=== PATIENT | male | born 1965 | race Caucasian/White ===

== ENCOUNTER 2019-07-13 17:04 | Inpatient (IN) ==
[2019-07-13] MEDS ORDERED: SODIUM CHLORIDE 0.9% 1000ML 500 ML IV ONE (17:30)
--- NOTE | 2019-07-13 17:37 | Emergency Department Note ---
History of Present Illness General Chief complaint: Back Injury/Pain Stated complaint: back pain Time Seen by Provider: 07/13/19 17:20 Source: family, RN notes reviewed and old records reviewed History of Present Illness Provider complaint: confused Maximum Pain Intensity: 5 Primary historian: Daughter: Cade. [phone] Pt has been confused since 1400 yesterday. Has been dropping drinks. Takes Hydrocone and Flexeril (06/25/2019). Thought he was at old job and thought was at house. Was supposed to go for Xrays for back a week ago. Normally drinks at least a couple glass of wine a day. Since last 24 hours a day no alcohol and no smoking. No complaints of chest pain but has been complaining of back pain. He was found Home Medications Home Medications Medication Instructions Recorded Confirmed Type albuterol sulfate 2 puff INHALATION Q4 PRN 07/13/19 07/13/19 History cyclobenzaprine 10 mg PO BID PRN 07/13/19 07/13/19 History folic acid 1 mg PO DAILY 07/13/19 07/13/19 History hydrocodone-acetaminophen 1 tab PO Q6H PRN 07/13/19 07/13/19 History hydroxyzine pamoate 25 mg PO TID PRN 07/13/19 07/13/19 History umeclidinium-vilanterol [Anoro 1 inh INHALATION DAILY 07/13/19 07/13/19 History Ellipta] Allergies Allergy/AdvReac Type Severity Reaction Status Date / Time No Known Allergies Allergy Unverified 07/13/19 18:51 Past Med/Surg History Social History Preferred Language: Romansh Communication Ability: Impaired Communication Ability Comment: patient angry, unable to answer most questions 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 Current Living Situation Comment: patient angry, unable to answer most questions Feels Safe at Home: Yes Smoking Status: Unknown if ever smoked Review of Systems A total of 10 systems reviewed and were otherwise negative Physical Exam Vital Signs Vital Signs - 24 hr 07/13/19 16:36 07/13/19 17:05 07/13/19 17:30 Temperature Temperature Source Pulse Rate 132 H 138 H 132 H Pulse Rate from SpO2 Sensor Pulse Rhythm Regular Pulse Strength Normal Respiratory Rate 22 20 19 Respiratory Effort / Characteristics Non-Labored Spontaneous Respiratory Depth Normal Respiratory Pattern Regular Blood Pressure 141/88 H 97/72 L 135/124 H Blood Pressure Mean 104 80 131 Blood Pressure Position Sitting Pulse Oximetry 98 Oxygen Delivery Method Room Air Sepsis Recent Fever Within 48 Hours No Sepsis New/Unexplained Change in Mental Status No Sepsis Action Taken by Nursing No Action Required 07/13/19 18:07 07/13/19 18:09 07/13/19 18:11 Temperature Temperature Source Pulse Rate 133 H 134 H Pulse Rate from SpO2 Sensor 133 H Pulse Rhythm Pulse Strength Respiratory Rate 23 23 Respiratory Effort / Characteristics Respiratory Depth Respiratory Pattern Blood Pressure 135/118 H 97/72 L Blood Pressure Mean 126 79 Blood Pressure Position Pulse Oximetry 94 94 Oxygen Delivery Method Room Air Sepsis Recent Fever Within 48 Hours Sepsis New/Unexplained Change in Mental Status Sepsis Action Taken by Nursing 07/13/19 18:18 07/13/19 18:46 07/13/19 19:00 Temperature 37.1 C Temperature Source Oral Pulse Rate 125 H 122 H Pulse Rate from SpO2 Sensor 125 H 125 H Pulse Rhythm Pulse Strength Respiratory Rate 30 H 25 H Respiratory Effort / Characteristics Respiratory Depth Respiratory Pattern Blood Pressure 110/67 103/81 Blood Pressure Mean 79 87 Blood Pressure Position Pulse Oximetry 93 92 Oxygen Delivery Method Sepsis Recent Fever Within 48 Hours Sepsis New/Unexplained Change in Mental Status Sepsis Action Taken by Nursing 07/13/19 19:15 07/13/19 20:15 Temperature Temperature Source Pulse Rate 114 H 119 H Pulse Rate from SpO2 Sensor 114 H 122 H Pulse Rhythm Pulse Strength Respiratory Rate 26 H 20 Respiratory Effort / Characteristics Respiratory Depth Respiratory Pattern Blood Pressure 114/73 115/79 Blood Pressure Mean 90 95 Blood Pressure Position Pulse Oximetry 93 91 Oxygen Delivery Method Sepsis Recent Fever Within 48 Hours Sepsis New/Unexplained Change in Mental Status Sepsis Action Taken by Nursing GENERAL: Patient is a cachectic-appearing male HEAD: Normocephalic atraumatic EYES: Ocular movements intact pupils equal and react to light OROPHARYNX mucous membranes are moist no exudates present no erythema or edema present NECK: Supple no nuchal rigidity CHEST: Good equal expansion LUNGS: Clear and equal to auscultation CARDIAC: Normal S1 and S2 ABDOMEN: Soft nontender no guarding BACK: No CVA tenderness EXTREMITIES: No pain upon palpation normal muscle strength in all groups no clubbing cyanosis or edema NEURO: Patient is following commands is answering questions appropriately. Alert and oriented x3 Cranial Nerves 2-12 grossly intact Course Administered Medications Magnesium Sulfate/Dextrose (Magnesium Sulfate / D5w) 1 gm in 100 mls @ 100 mls/hr IV ONE ONE Stop: 07/13/19 22:59 Last Admin: 07/13/19 22:23 Dose: 100 mls/hr Documented by: [id number] Lorazepam (Ativan) 1 mg in 2 mls @ 2 mls/min IV UD PRN; Protocol PRN Reason: EtOH Withdrawl AWSS Score 6,7 Stop: 08/12/19 21:35 Last Admin: 07/13/19 22:23 Dose: 2 mls/min Documented by: [id number] Discontinued Medications Gabapentin (Neurontin) 1,200 mg PO NOW STA Stop: 07/13/19 20:08 Last Admin: 07/13/19 20:19 Dose: 1,200 mg Documented by: [id number] Sodium Chloride (Nss 1000ml) 500 mls @ 999 mls/hr IV .Q31M ONE Stop: 07/13/19 18:00 Last Infusion: 07/13/19 19:41 Dose: 0 mls/hr Documented by: [id number] Admin: 07/13/19 18:43 Dose: 999 mls/hr Documented by: [id number] Multivitamins 10 ml/ Thiamine HCl 100 mg/ Folic Acid 1 mg/Sodium Chloride 1,011.2 mls @ 1,011.2 mls/hr IV .Q1H ONE Stop: 07/13/19 18:37 Last Infusion: 07/13/19 20:15 Dose: 0 mls/hr Documented by: [id number] Admin: 07/13/19 18:43 Dose: 1,011.2 mls/hr Documented by: [id number] Sodium Chloride (Nss 1000ml) 1,000 mls @ 999 mls/hr IV .Q1H1M ONE Stop: 07/13/19 20:01 Last Infusion: 07/13/19 20:25 Dose: 0 mls/hr Documented by: [id number] Admin: 07/13/19 19:12 Dose: 999 mls/hr Documented by: [id number] Ampicillin Sodium/Sulbactam Sodium 3,000 mg/ Sodium Chloride 108 mls @ 200 mls/hr IV NOW STA Stop: 07/13/19 20:03 Last Infusion: 07/13/19 20:46 Dose: 0 mls/hr Documented by: [id number] Admin: 07/13/19 20:15 Dose: 200 mls/hr Documented by: [id number] Parenteral Electrolytes (Normosol-R) 500 mls @ 500 mls/hr IV .Q1H ONE Stop: 07/13/19 21:09 Last Infusion: 07/13/19 21:15 Dose: 0 mls/hr Documented by: [id number] Admin: 07/13/19 20:15 Dose: 500 mls/hr Documented by: [id number] Ioversol (Optiray 320 100ml) 55 ml IV ONCE PRN PRN Reason: Interaction Checking Stop: 07/17/19 18:42 Last Admin: 07/13/19 18:43 Dose: 55 ml Documented by: [id number] Ioversol (Optiray 320 100ml) 94 ml IV ONCE PRN PRN Reason: Interaction Checking Stop: 07/17/19 18:44 Last Admin: 07/13/19 18:45 Dose: 94 ml Documented by: [id number] Potassium Chloride (Klor-Con M20) 40 meq PO NOW STA Stop: 07/13/19 19:44 Last Admin: 07/13/19 20:20 Dose: 40 meq Documented by: [id number] Medical Decision Making Differential Diagnosis Infection, dehydration, metabolic abnormality, hypo/hyperglycemia, electrolyte disturbance, anemia, hypoxia, cardiac sources, intracerebral event, toxicologic, neurologic, as well as other pathologies. Medical Records Attestation: I reviewed the patient's medical records. Home Medications Current Medication List: was personally reviewed by me Laboratory Data Attestation: I reviewed the patient's lab results. Result diagrams: 07/13/19 17:35 07/13/19 20:45 Lab Results 07/13/19 07/13/19 07/13/19 Range/Units 17:35 17:35 17:35 WBC 10.05 (4.8-10.8) K/uL RBC 4.47 L (4.7-6.1) M/uL Hgb 15.9 (14.0-18.0) g/dL POC Hgb (14.0-18.0) g/dl Hct 45.5 (42-52) % POC Hct (42-52) % MCV 101.8 H (80-100) fL MCH 35.6 H (25-34) pg MCHC 34.9 (32-36) g/dL RDW Std Deviation 55.7 H (36.4-46.3) fL RDW Coeff of Trista 15.2 H (11.5-14.5) % Plt Count 119 L (130-400) K/uL MPV 12.0 H (7.4-10.4) fL Immature Gran % (Auto) 0.4 % Neut % (Auto) 67.5 % Lymph % (Auto) 22.0 % [place] % (Auto) 8.6 % Eos % (Auto) 0.9 % Baso % (Auto) 0.6 % Immature Gran # (Auto) 0.04 H (0.00-0.02) K/uL Neut # (Auto) 6.79 H (1.4-6.5) K/uL Lymph # (Auto) 2.21 (1.2-3.4) K/uL [place] # (Auto) 0.86 H (0.11-0.59) K/uL Eos # (Auto) 0.09 (0-0.5) K/uL Baso # (Auto) 0.06 (0-0.2) K/uL Macrocytosis Present PT 15.4 H (9.0-12.0) Seconds INR 1.5 H (0.9-1.1) APTT 28.2 (21.0-31.0) Seconds PTT Ratio 1.0 POC Sodium (135-144) mmol/L Sodium 131 L (136-145) mmol/L POC Potassium (3.3-5.0) mmol/L Potassium 3.6 (3.5-5.1) mmol/L POC Chloride (101-112) mmol/L Chloride 93 L (98-107) mmol/L Carbon Dioxide 26 (21-32) mmol/L POC Total CO2 (24-31) mEq/l Anion Gap 12.0 H (3-11) POC Anion Gap (16-25) mmol/L POC BUN (7-18) mg/dl BUN 27 H (7-18) mg/dl Creatinine 1.38 (0.6-1.4) mg/dl POC Creatinine (0.6-1.3) mg/dl Est Cr Clr Drug Dosing 42.7 ml/min Est GFR ( Amer) 66.2 Est GFR (Non-Af Amer) 57.1 BUN/Creatinine Ratio 19.7 (10-20) Glucose 98 (70-99) mg/dl POC Glucose (other) (70-99) mg/dl Osmolality (280-300) mOsm/kg Lactate (0.4-2.0) mmol/L Calcium 13.0 H* (8.5-10.1) mg/dl POC Ioniz Calcium Carleen (1.12-1.32) mmol/l Phosphorus (2.5-4.9) mg/dl Magnesium (1.8-2.4) mg/dl Total Bilirubin 2.5 H (0.2-1) mg/dl AST 216 H (15-37) U/L ALT 63 (12-78) U/L Alkaline Phosphatase 659 H (45-117) U/L Total Creatine Kinase 169 (39-308) U/L CK-MB (CK-2) 1.5 (0.5-3.6) ng/ml CK/CKMB % Calc 0.9 (0-3.0) Troponin I < 0.015 (0-0.045) ng/ml Total Protein 8.1 (6.4-8.2) gm/dl Albumin 2.4 L (3.4-5.0) gm/dl Globulin 5.7 H (2.5-4.0) gm/dl Albumin/Globulin Ratio 0.4 L (0.9-2) Lipase 49 L (73-393) U/L Procalcitonin (0-0.5) ng/ml TSH (0.300-4.500) uIu/ml Ethyl Alcohol mg/dL (0-3) mg/dl 07/13/19 07/13/19 07/13/19 Range/Units 17:35 17:35 17:54 WBC (4.8-10.8) K/uL RBC (4.7-6.1) M/uL Hgb (14.0-18.0) g/dL POC Hgb 17.0 (14.0-18.0) g/dl Hct (42-52) % POC Hct 50 (42-52) % MCV (80-100) fL MCH (25-34) pg MCHC (32-36) g/dL RDW Std Deviation (36.4-46.3) fL RDW Coeff of Trista (11.5-14.5) % Plt Count (130-400) K/uL MPV (7.4-10.4) fL Immature Gran % (Auto) % Neut % (Auto) % Lymph % (Auto) % [place] % (Auto) % Eos % (Auto) % Baso % (Auto) % Immature Gran # (Auto) (0.00-0.02) K/uL Neut # (Auto) (1.4-6.5) K/uL Lymph # (Auto) (1.2-3.4) K/uL [place] # (Auto) (0.11-0.59) K/uL Eos # (Auto) (0-0.5) K/uL Baso # (Auto) (0-0.2) K/uL Macrocytosis PT (9.0-12.0) Seconds INR (0.9-1.1) APTT (21.0-31.0) Seconds PTT Ratio POC Sodium 132 L (135-144) mmol/L Sodium (136-145) mmol/L POC Potassium 3.8 (3.3-5.0) mmol/L Potassium (3.5-5.1) mmol/L POC Chloride 93 L (101-112) mmol/L Chloride (98-107) mmol/L Carbon Dioxide (21-32) mmol/L POC Total CO2 24 (24-31) mEq/l Anion Gap (3-11) POC Anion Gap 19.0 (16-25) mmol/L POC BUN 27 H (7-18) mg/dl BUN (7-18) mg/dl Creatinine (0.6-1.4) mg/dl POC Creatinine 1.3 (0.6-1.3) mg/dl Est Cr Clr Drug Dosing ml/min Est GFR ( Amer) Est GFR (Non-Af Amer) BUN/Creatinine Ratio (10-20) Glucose (70-99) mg/dl POC Glucose (other) 104 H (70-99) mg/dl Osmolality (280-300) mOsm/kg Lactate (0.4-2.0) mmol/L Calcium (8.5-10.1) mg/dl POC Ioniz Calcium Carleen 1.53 H (1.12-1.32) mmol/l Phosphorus 3.7 (2.5-4.9) mg/dl Magnesium 1.8 (1.8-2.4) mg/dl Total Bilirubin (0.2-1) mg/dl AST (15-37) U/L ALT (12-78) U/L Alkaline Phosphatase (45-117) U/L Total Creatine Kinase (39-308) U/L CK-MB (CK-2) (0.5-3.6) ng/ml CK/CKMB % Calc (0-3.0) Troponin I (0-0.045) ng/ml Total Protein (6.4-8.2) gm/dl Albumin (3.4-5.0) gm/dl Globulin (2.5-4.0) gm/dl Albumin/Globulin Ratio (0.9-2) Lipase (73-393) U/L Procalcitonin (0-0.5) ng/ml TSH 9.580 H (0.300-4.500) uIu/ml Ethyl Alcohol mg/dL (0-3) mg/dl 07/13/19 07/13/19 07/13/19 Range/Units 18:08 18:08 18:08 WBC (4.8-10.8) K/uL RBC (4.7-6.1) M/uL Hgb (14.0-18.0) g/dL POC Hgb (14.0-18.0) g/dl Hct (42-52) % POC Hct (42-52) % MCV (80-100) fL MCH (25-34) pg MCHC (32-36) g/dL RDW Std Deviation (36.4-46.3) fL RDW Coeff of Trista (11.5-14.5) % Plt Count (130-400) K/uL MPV (7.4-10.4) fL Immature Gran % (Auto) % Neut % (Auto) % Lymph % (Auto) % [place] % (Auto) % Eos % (Auto) % Baso % (Auto) % Immature Gran # (Auto) (0.00-0.02) K/uL Neut # (Auto) (1.4-6.5) K/uL Lymph # (Auto) (1.2-3.4) K/uL [place] # (Auto) (0.11-0.59) K/uL Eos # (Auto) (0-0.5) K/uL Baso # (Auto) (0-0.2) K/uL Macrocytosis PT (9.0-12.0) Seconds INR (0.9-1.1) APTT (21.0-31.0) Seconds PTT Ratio POC Sodium (135-144) mmol/L Sodium (136-145) mmol/L POC Potassium (3.3-5.0) mmol/L Potassium (3.5-5.1) mmol/L POC Chloride (101-112) mmol/L Chloride (98-107) mmol/L Carbon Dioxide (21-32) mmol/L POC Total CO2 (24-31) mEq/l Anion Gap (3-11) POC Anion Gap (16-25) mmol/L POC BUN (7-18) mg/dl BUN (7-18) mg/dl Creatinine (0.6-1.4) mg/dl POC Creatinine (0.6-1.3) mg/dl Est Cr Clr Drug Dosing ml/min Est GFR ( Amer) Est GFR (Non-Af Amer) BUN/Creatinine Ratio (10-20) Glucose (70-99) mg/dl POC Glucose (other) (70-99) mg/dl Osmolality (280-300) mOsm/kg Lactate 5.1 H* (0.4-2.0) mmol/L Calcium (8.5-10.1) mg/dl POC Ioniz Calcium Carleen (1.12-1.32) mmol/l Phosphorus (2.5-4.9) mg/dl Magnesium (1.8-2.4) mg/dl Total Bilirubin (0.2-1) mg/dl AST (15-37) U/L ALT (12-78) U/L Alkaline Phosphatase (45-117) U/L Total Creatine Kinase (39-308) U/L CK-MB (CK-2) (0.5-3.6) ng/ml CK/CKMB % Calc (0-3.0) Troponin I (0-0.045) ng/ml Total Protein (6.4-8.2) gm/dl Albumin (3.4-5.0) gm/dl Globulin (2.5-4.0) gm/dl Albumin/Globulin Ratio (0.9-2) Lipase (73-393) U/L Procalcitonin 1.23 H (0-0.5) ng/ml TSH (0.300-4.500) uIu/ml Ethyl Alcohol mg/dL < 3.0 (0-3) mg/dl 07/13/19 Range/Units 18:08 WBC (4.8-10.8) K/uL RBC (4.7-6.1) M/uL Hgb (14.0-18.0) g/dL POC Hgb (14.0-18.0) g/dl Hct (42-52) % POC Hct (42-52) % MCV (80-100) fL MCH (25-34) pg MCHC (32-36) g/dL RDW Std Deviation (36.4-46.3) fL RDW Coeff of Trista (11.5-14.5) % Plt Count (130-400) K/uL MPV (7.4-10.4) fL Immature Gran % (Auto) % Neut % (Auto) % Lymph % (Auto) % [place] % (Auto) % Eos % (Auto) % Baso % (Auto) % Immature Gran # (Auto) (0.00-0.02) K/uL Neut # (Auto) (1.4-6.5) K/uL Lymph # (Auto) (1.2-3.4) K/uL [place] # (Auto) (0.11-0.59) K/uL Eos # (Auto) (0-0.5) K/uL Baso # (Auto) (0-0.2) K/uL Macrocytosis PT (9.0-12.0) Seconds INR (0.9-1.1) APTT (21.0-31.0) Seconds PTT Ratio POC Sodium (135-144) mmol/L Sodium (136-145) mmol/L POC Potassium (3.3-5.0) mmol/L Potassium (3.5-5.1) mmol/L POC Chloride (101-112) mmol/L Chloride (98-107) mmol/L Carbon Dioxide (21-32) mmol/L POC Total CO2 (24-31) mEq/l Anion Gap (3-11) POC Anion Gap (16-25) mmol/L POC BUN (7-18) mg/dl BUN (7-18) mg/dl Creatinine (0.6-1.4) mg/dl POC Creatinine (0.6-1.3) mg/dl Est Cr Clr Drug Dosing ml/min Est GFR ( Amer) Est GFR (Non-Af Amer) BUN/Creatinine Ratio (10-20) Glucose (70-99) mg/dl POC Glucose (other) (70-99) mg/dl Osmolality 307 H (280-300) mOsm/kg Lactate (0.4-2.0) mmol/L Calcium (8.5-10.1) mg/dl POC Ioniz Calcium Carleen (1.12-1.32) mmol/l Phosphorus (2.5-4.9) mg/dl Magnesium (1.8-2.4) mg/dl Total Bilirubin (0.2-1) mg/dl AST (15-37) U/L ALT (12-78) U/L Alkaline Phosphatase (45-117) U/L Total Creatine Kinase (39-308) U/L CK-MB (CK-2) (0.5-3.6) ng/ml CK/CKMB % Calc (0-3.0) Troponin I (0-0.045) ng/ml Total Protein (6.4-8.2) gm/dl Albumin (3.4-5.0) gm/dl Globulin (2.5-4.0) gm/dl Albumin/Globulin Ratio (0.9-2) Lipase (73-393) U/L Procalcitonin (0-0.5) ng/ml TSH (0.300-4.500) uIu/ml Ethyl Alcohol mg/dL (0-3) mg/dl Imaging Data Radiologist's Impression: [facility], [place] [phone] CT Scan Report Patient: Susanne FRANK Date: 07/13/19 MR#: [id number] Acct ID:[id number]: [address] Date: 1965[facility] Zip: [place] [address] Age: 54Location: ED Sex: M Room/Bed: Att Phy:Diagnosis: back pain Edith Phy: Lakeisha Go, DOService Date: 07/13/19 Fam Phy: Lakeisha Go, DOInterpreting Phy: Adebayo Gaytan MD Admit Phy: Ordering Phy: Boris Johnson MD cc: ~ CT SCAN OF THE CHEST, ABDOMEN, AND PELVIS WITH IV CONTRAST; CT SCAN OF THE THORACIC SPINE WITHOUT IV CONTRAST CLINICAL HISTORY: Atypical chest pain. Thoracic back pain. Liver failure. COMPARISON STUDY: Lumbar spine radiographs dated 08/03/2014. TECHNIQUE: Following the IV administration of 94 of Optiray 320, CT scan of the chest was performed from the thoracic inlet to the upper abdomen. Subsequently, following a second injection of 55 cc of Optiray 320, CT scan of the abdomen and pelvis is performed from the lung bases to the proximal femora. Images are reviewed in the axial, sagittal, and coronal planes. IV contrast was administered without complication. Additionally, unenhanced CT scan of the thoracic spine is performed from the lower cervical spine to the upper lumbar spine. The thoracic spinal CT scan is also reviewed in the axial, sagittal, and coronal planes. IV contrast was not administered specifically for the thoracic spine CT. A dose lowering technique was utilized adhering to the principles of ALARA. CT DOSE: 392.15 mGy.cm FINDINGS: CHEST: Thyroid: Imaged portions of the thyroid gland are normal in size and attenuation. Low-attenuation thyroid nodules measure up to 10 mm. Thoracic aorta: There is mild atherosclerotic calcification of the thoracic aorta, which is normal in caliber and demonstrates 4-vessel variant arch anatomy. No dissection is seen. Pulmonary vasculature: The pulmonary trunk is normal in caliber. There are no filling defects identified in the central pulmonary vessels to indicate p ulmonary embolus. Note that this examination was not protocoled for evaluation of the pulmonary arteries and the pulmonary vessels are not well opacified. Heart: The heart is normal in size and without pericardial effusion. There are coronary artery calcifications. Lungs and pleural spaces: Moderate emphysematous change is identified. There is no airspace consolidation typical for pneumonia or pleural effusion. There is a 2.2 x 2.1 x 1.4 cm spiculated low-attenuation nodular density identified along the left major fissure seen on image #124. A 5 mm left lower lobe nodule seen image #245. A 9 mm nodular density at the medial right lung base seen on image #238. Additional foci of tree-in-bud nodularity are scattered throughout both lungs. The trachea and central airways are clear. Mediastinum: There are scattered subcentimeter mediastinal lymph nodes. These are not pathologically enlarged by size criteria. Demetra: Clear. Axillae: There is no axillary lymphadenopathy. Bony thorax: See below for dedicated assessment of the thoracic spine. The skeletal structures are heterogeneously osteopenic. There are permeative osteolytic metastatic lesions. There are numerous lesions identified throughout the thoracic spine. Lesions are also present within several ribs and the body of the sternum. A right scapular lesion is seen on image #53 involving the posterior glenoid. There are numerous right-sided rib fractures which are age indeterminant. THORACIC SPINE: Numerous subtle permeative osseous metastatic lesions are seen throughout the thoracic spine. There is a permeative lesion in the body of T11 with a mild to moderate compression deformity. There are also mild compression deformities of T7, T8, and T9 which are also likely pathologic. A permeative lesion is clearly seen in the body of T9. A soft tissue component from a lesion in the body of T9 minimally effaces the anterior epidural space. The transverse and spinous processes are intact. A permeative lesion is seen involving the left transverse process of T8. There is involvement of both transverse processes of T3. The disc spaces are preserved. There is no evidence of large disc herniation or high-grade central canal stenosis by CT. Soft tissues: The patient is cachectic. A 3.2 x 2.5 cm heterogeneous mass is present in the left paraspinous soft tissues posterior to the left transverse process of T2. This is best seen on axial image #[address] A 1.0 cm soft tissue nodule is present within the subcutaneous soft tissues of the left posterior shoulder as seen on image #72. ABDOMEN AND PELVIS: Liver: The contrast-enhanced liver is enlarged, measuring over 18 cm in length. The liver is heterogeneous in attenuation. There are numerous low-attenuation hepatic lesions which are highly concerning for metastatic disease. A large geographic region of diminished attenuation in the right lobe measures over 12 cm in length. A large lesion is also identified in the caudate lobe. There is no intrahepatic biliary ductal dilatation. The hepatic veins and portal veins are patent. The right portal vein appears attenuated. Gallbladder: The gallbladder is distended but otherwise normal in appearance. Spleen: Normal in size and attenuation. Pancreas: Moderately atrophic and grossly unremarkable. Adrenal glands: Unremarkable. Kidneys: The contrast enhanced kidneys are normal in size and without hyd ronephrosis. The kidneys enhance and excrete symmetrically. Excreted IV contrast fills the renal collecting systems and ureters. Abdominal vasculature: The abdominal aorta is normal in course and caliber noting moderate to advanced atherosclerotic calcification. Bowel: There is no bowel obstruction. There are scattered colonic diverticula without CT evidence of acute diverticulitis. Residual enteric contrast is noted in the right colon. The appendix is well-visualized and normal. Peritoneum: There is no intraperitoneal free air. Trace abdominopelvic ascites is noted. Lymphadenopathy: Enlarged kalyan hepatic lymph nodes measure up to 2.4 cm in length. An aortocaval node on image #147 measures 1.2 cm in short axis. Pelvic viscera: The prostate gland is mildly enlarged and heterogeneous. The bladder wall is thickened and trabeculated suggesting chronic outlet obstruction. A left-sided varicocele is noted. Skeletal structures: The skeletal structures are heterogeneously osteopenic. T here are numerous subtle permeative metastatic lesions identified in the lumbosacral spine and bony pelvis. A lesion the left iliac wing is seen on image #225. There is a lesion in the left transverse process of L3 seen on image #158. A large lesion is seen within the spinous process and laminae of L4. Soft tissues: A 9 mm subcutaneous soft tissue nodule is present in the left lower back on image #161. IMPRESSION: 1. Findings are consistent with widespread metastatic disease. 2. Emphysema. 3. There is a 2.2 cm spiculated pulmonary nodule along the left major fissure. 4. Findings are consistent with subtle multifocal osseous metastatic disease. 5. There are permeative destructive lesions in the thoracic spine with presumed pathologic compression deformities of T7, T8, T9, and T11. 6. Additional osseous metastatic deposits are detailed above. 7. There is a large heterogeneous soft tissue mass within the left posterior paraspinous soft tissues at the level of T2. 8. Additional subcutaneous nodules in the left posterior shoulder and the left lower back are concerning for metastatic deposits. 9. There is evidence of multifocal hepatic metastatic disease. 10. A 12 cm geographic low-attenuation lesion/region in the right hepatic lobe likely represents confluent metastatic disease. Geographic steatosis or infarct are considered much less likely. 11. There are pathologically enlarged upper abdominal and retroperitoneal lymph nodes. 12. There is trace abdominopelvic ascites. 13. There is mild posterior cortical breakthrough involving the T9 vertebral lesion. This minimally effaces the anterior epidural space. This does not cause significant spinal stenosis. 14. Additional subcentimeter pulmonary nodules are detailed above. 15. Scattered foci of tree-in-bud nodularity are scattered throughout both lungs and suggest a mild infectious/inflammatory pneumonitis. Clinical correlation will be required. 16. Additional findings as above. ACT 112: Negative or not required by law. Electronically signed by: Adebayo Gaytan M.D. 07/13/2019 7:18 PM Dictated: 07/13/19 [address] [place], [place] [phone] CT Scan Report Patient: Susanne FRANK Date: 07/13/19 MR#: [id number] [place] [address] ROAD Acct ID:[id number]: [address] Date: 1965[facility] Zip: [place] [address] Age: 54Location: ED Sex: M Room/Bed: Att Phy:Diagnosis: back pain Edith Phy: Lakeisha Go, DOService Date: 07/13/19 Fam Phy: Lakeisha Go, DOInterpreting Phy: Adebayo Gaytan MD Admit Phy: Ordering Phy: Boris Johnson MD cc: ~ CT SCAN OF THE BRAIN WITHOUT IV CONTRAST CLINICAL HISTORY: Change in mental status. COMPARISON STUDY: No priors. TECHNIQUE: Unenhanced axial CT scan of the brain is performed from the vertex to the skull base. A dose lowering technique was utilized adhering to the principl es of ELAINA. The examination is modestly degraded by motion artifact. CT DOSE: 1538.23 mGy.cm FINDINGS: Brain parenchyma: The brain parenchyma is normal in appearance. There is no hemorrhage, mass effect, or evidence of acute territorial ischemia by CT criteria. Watters-white matter differentiation is preserved. No extra-axial fluid collection is seen. Ventricles, sulci, cisterns: Normal in configuration. Intracranial vasculature: There is atherosclerotic calcification of the cavernous carotid arteries. Calvarium: Unremarkable. Sinuses and mastoids: The visualized paranasal sinuses are clear. The mastoid air cells are well pneumatized. Orbits: The bony orbits are grossly intact. IMPRESSION: No acute intracranial abnormality. ACT 112: Negative or not required by law. Electronically signed by: Adebayo Gaytan M.D. 07/13/2019 6:37 PM Dictated: 07/13/191834 Transcribed: 07/13/191834 14 Ready for Discharge: Author: Boris Johnson MD Last Saved at 07/13/19 19:24 undefined undefined Differential Diagnosis Infection,dehydration,metabolicabnormality,hypo/hyperglycemia,electr olytedisturbance,anemia,hypoxia,cardiacsources,intracerebralevent,toxicologic,ne urologic,aswellasotherpathologies. Attestation Additional Comments Click to Enter Additional Comments Current Medication List Additional Comments Click to Enter Additional Comments Attestation Lab results narrative Click to Enter Lab results narrative Result diagrams 07/13/19 17:35 07/13/19 20:45 Labs Lab Results 07/13/19 07/13/19 07/13/19 Range/Units 17:35 17:35 17:35 WBC 10.05 (4.8-10.8) K/uL RBC 4.47 L (4.7-6.1) M/uL Hgb 15.9 (14.0-18.0) g/dL POC Hgb (14.0-18.0) g/dl Hct 45.5 (42-52) % POC Hct (42-52) % MCV 101.8 H (80-100) fL MCH 35.6 H (25-34) pg MCHC 34.9 (32-36) g/dL RDW Std Deviation 55.7 H (36.4-46.3) fL RDW Coeff of Trista 15.2 H (11.5-14.5) % Plt Count 119 L (130-400) K/uL MPV 12.0 H (7.4-10.4) fL Immature Gran % (Auto) 0.4 % Neut % (Auto) 67.5 % Lymph % (Auto) 22.0 % [place] % (Auto) 8.6 % Eos % (Auto) 0.9 % Baso % (Auto) 0.6 % Immature Gran # (Auto) 0.04 H (0.00-0.02) K/uL Neut # (Auto) 6.79 H (1.4-6.5) K/uL Lymph # (Auto) 2.21 (1.2-3.4) K/uL [place] # (Auto) 0.86 H (0.11-0.59) K/uL Eos # (Auto) 0.09 (0-0.5) K/uL Baso # (Auto) 0.06 (0-0.2) K/uL Macrocytosis Present PT 15.4 H (9.0-12.0) Seconds INR 1.5 H (0.9-1.1) APTT 28.2 (21.0-31.0) Seconds PTT Ratio 1.0 POC Sodium (135-144) mmol/L Sodium 131 L (136-145) mmol/L POC Potassium (3.3-5.0) mmol/L Potassium 3.6 (3.5-5.1) mmol/L POC Chloride (101-112) mmol/L Chloride 93 L (98-107) mmol/L Carbon Dioxide 26 (21-32) mmol/L POC Total CO2 (24-31) mEq/l Anion Gap 12.0 H (3-11) POC Anion Gap (16-25) mmol/L POC BUN (7-18) mg/dl BUN 27 H (7-18) mg/dl Creatinine 1.38 (0.6-1.4) mg/dl POC Creatinine (0.6-1.3) mg/dl Est Cr Clr Drug Dosing 42.7 ml/min Est GFR ( Amer) 66.2 Est GFR (Non-Af Amer) 57.1 BUN/Creatinine Ratio 19.7 (10-20) Glucose 98 (70-99) mg/dl POC Glucose (other) (70-99) mg/dl Osmolality (280-300) mOsm/kg Lactate (0.4-2.0) mmol/L Calcium 13.0 H* (8.5-10.1) mg/dl POC Ioniz Calcium Carleen (1.12-1.32) mmol/l Phosphorus (2.5-4.9) mg/dl Magnesium (1.8-2.4) mg/dl Total Bilirubin 2.5 H (0.2-1) mg/dl AST 216 H (15-37) U/L ALT 63 (12-78) U/L Alkaline Phosphatase 659 H (45-117) U/L Total Creatine Kinase 169 (39-308) U/L CK-MB (CK-2) 1.5 (0.5-3.6) ng/ml CK/CKMB % Calc 0.9 (0-3.0) Troponin I < 0.015 (0-0.045) ng/ml Total Protein 8.1 (6.4-8.2) gm/dl Albumin 2.4 L (3.4-5.0) gm/dl Globulin 5.7 H (2.5-4.0) gm/dl Albumin/Globulin Ratio 0.4 L (0.9-2) Lipase 49 L (73-393) U/L Procalcitonin (0-0.5) ng/ml TSH (0.300-4.500) uIu/ml Ethyl Alcohol mg/dL (0-3) mg/dl 07/13/19 07/13/19 07/13/19 Range/Units 17:35 17:35 17:54 WBC (4.8-10.8) K/uL RBC (4.7-6.1) M/uL Hgb (14.0-18.0) g/dL POC Hgb 17.0 (14.0-18.0) g/dl Hct (42-52) % POC Hct 50 (42-52) % MCV (80-100) fL MCH (25-34) pg MCHC (32-36) g/dL RDW Std Deviation (36.4-46.3) fL RDW Coeff of Trista (11.5-14.5) % Plt Count (130-400) K/uL MPV (7.4-10.4) fL Immature Gran % (Auto) % Neut % (Auto) % Lymph % (Auto) % [place] % (Auto) % Eos % (Auto) % Baso % (Auto) % Immature Gran # (Auto) (0.00-0.02) K/uL Neut # (Auto) (1.4-6.5) K/uL Lymph # (Auto) (1.2-3.4) K/uL [place] # (Auto) (0.11-0.59) K/uL Eos # (Auto) (0-0.5) K/uL Baso # (Auto) (0-0.2) K/uL Macrocytosis PT (9.0-12.0) Seconds INR (0.9-1.1) APTT (21.0-31.0) Seconds PTT Ratio POC Sodium 132 L (135-144) mmol/L Sodium (136-145) mmol/L POC Potassium 3.8 (3.3-5.0) mmol/L Potassium (3.5-5.1) mmol/L POC Chloride 93 L (101-112) mmol/L Chloride (98-107) mmol/L Carbon Dioxide (21-32) mmol/L POC Total CO2 24 (24-31) mEq/l Anion Gap (3-11) POC Anion Gap 19.0 (16-25) mmol/L POC BUN 27 H (7-18) mg/dl BUN (7-18) mg/dl Creatinine (0.6-1.4) mg/dl POC Creatinine 1.3 (0.6-1.3) mg/dl Est Cr Clr Drug Dosing ml/min Est GFR ( Amer) Est GFR (Non-Af Amer) BUN/Creatinine Ratio (10-20) Glucose (70-99) mg/dl POC Glucose (other) 104 H (70-99) mg/dl Osmolality (280-300) mOsm/kg Lactate (0.4-2.0) mmol/L Calcium (8.5-10.1) mg/dl POC Ioniz Calcium Carleen 1.53 H (1.12-1.32) mmol/l Phosphorus 3.7 (2.5-4.9) mg/dl Magnesium 1.8 (1.8-2.4) mg/dl Total Bilirubin (0.2-1) mg/dl AST (15-37) U/L ALT (12-78) U/L Alkaline Phosphatase (45-117) U/L Total Creatine Kinase (39-308) U/L CK-MB (CK-2) (0.5-3.6) ng/ml CK/CKMB % Calc (0-3.0) Troponin I (0-0.045) ng/ml Total Protein (6.4-8.2) gm/dl Albumin (3.4-5.0) gm/dl Globulin (2.5-4.0) gm/dl Albumin/Globulin Ratio (0.9-2) Lipase (73-393) U/L Procalcitonin (0-0.5) ng/ml TSH 9.580 H (0.300-4.500) uIu/ml Ethyl Alcohol mg/dL (0-3) mg/dl 07/13/19 07/13/19 07/13/19 Range/Units 18:08 18:08 18:08 WBC (4.8-10.8) K/uL RBC (4.7-6.1) M/uL Hgb (14.0-18.0) g/dL POC Hgb (14.0-18.0) g/dl Hct (42-52) % POC Hct (42-52) % MCV (80-100) fL MCH (25-34) pg MCHC (32-36) g/dL RDW Std Deviation (36.4-46.3) fL RDW Coeff of Trista (11.5-14.5) % Plt Count (130-400) K/uL MPV (7.4-10.4) fL Immature Gran % (Auto) % Neut % (Auto) % Lymph % (Auto) % [place] % (Auto) % Eos % (Auto) % Baso % (Auto) % Immature Gran # (Auto) (0.00-0.02) K/uL Neut # (Auto) (1.4-6.5) K/uL Lymph # (Auto) (1.2-3.4) K/uL [place] # (Auto) (0.11-0.59) K/uL Eos # (Auto) (0-0.5) K/uL Baso # (Auto) (0-0.2) K/uL Macrocytosis PT (9.0-12.0) Seconds INR (0.9-1.1) APTT (21.0-31.0) Seconds PTT Ratio POC Sodium (135-144) mmol/L Sodium (136-145) mmol/L POC Potassium (3.3-5.0) mmol/L Potassium (3.5-5.1) mmol/L POC Chloride (101-112) mmol/L Chloride (98-107) mmol/L Carbon Dioxide (21-32) mmol/L POC Total CO2 (24-31) mEq/l Anion Gap (3-11) POC Anion Gap (16-25) mmol/L POC BUN (7-18) mg/dl BUN (7-18) mg/dl Creatinine (0.6-1.4) mg/dl POC Creatinine (0.6-1.3) mg/dl Est Cr Clr Drug Dosing ml/min Est GFR ( Amer) Est GFR (Non-Af Amer) BUN/Creatinine Ratio (10-20) Glucose (70-99) mg/dl POC Glucose (other) (70-99) mg/dl Osmolality (280-300) mOsm/kg Lactate 5.1 H* (0.4-2.0) mmol/L Calcium (8.5-10.1) mg/dl POC Ioniz Calcium Carleen (1.12-1.32) mmol/l Phosphorus (2.5-4.9) mg/dl Magnesium (1.8-2.4) mg/dl Total Bilirubin (0.2-1) mg/dl AST (15-37) U/L ALT (12-78) U/L Alkaline Phosphatase (45-117) U/L Total Creatine Kinase (39-308) U/L CK-MB (CK-2) (0.5-3.6) ng/ml CK/CKMB % Calc (0-3.0) Troponin I (0-0.045) ng/ml Total Protein (6.4-8.2) gm/dl Albumin (3.4-5.0) gm/dl Globulin (2.5-4.0) gm/dl Albumin/Globulin Ratio (0.9-2) Lipase (73-393) U/L Procalcitonin 1.23 H (0-0.5) ng/ml TSH (0.300-4.500) uIu/ml Ethyl Alcohol mg/dL < 3.0 (0-3) mg/dl 07/13/19 Range/Units 18:08 WBC (4.8-10.8) K/uL RBC (4.7-6.1) M/uL Hgb (14.0-18.0) g/dL POC Hgb (14.0-18.0) g/dl Hct (42-52) % POC Hct (42-52) % MCV (80-100) fL MCH (25-34) pg MCHC (32-36) g/dL RDW Std Deviation (36.4-46.3) fL RDW Coeff of Trista (11.5-14.5) % Plt Count (130-400) K/uL MPV (7.4-10.4) fL Immature Gran % (Auto) % Neut % (Auto) % Lymph % (Auto) % [place] % (Auto) % Eos % (Auto) % Baso % (Auto) % Immature Gran # (Auto) (0.00-0.02) K/uL Neut # (Auto) (1.4-6.5) K/uL Lymph # (Auto) (1.2-3.4) K/uL [place] # (Auto) (0.11-0.59) K/uL Eos # (Auto) (0-0.5) K/uL Baso # (Auto) (0-0.2) K/uL Macrocytosis PT (9.0-12.0) Seconds INR (0.9-1.1) APTT (21.0-31.0) Seconds PTT Ratio POC Sodium (135-144) mmol/L Sodium (136-145) mmol/L POC Potassium (3.3-5.0) mmol/L Potassium (3.5-5.1) mmol/L POC Chloride (101-112) mmol/L Chloride (98-107) mmol/L Carbon Dioxide (21-32) mmol/L POC Total CO2 (24-31) mEq/l Anion Gap (3-11) POC Anion Gap (16-25) mmol/L POC BUN (7-18) mg/dl BUN (7-18) mg/dl Creatinine (0.6-1.4) mg/dl POC Creatinine (0.6-1.3) mg/dl Est Cr Clr Drug Dosing ml/min Est GFR ( Amer) Est GFR (Non-Af Amer) BUN/Creatinine Ratio (10-20) Glucose (70-99) mg/dl POC Glucose (other) (70-99) mg/dl Osmolality 307 H (280-300) mOsm/kg Lactate (0.4-2.0) mmol/L Calcium (8.5-10.1) mg/dl POC Ioniz Calcium Carleen (1.12-1.32) mmol/l Phosphorus (2.5-4.9) mg/dl Magnesium (1.8-2.4) mg/dl Total Bilirubin (0.2-1) mg/dl AST (15-37) U/L ALT (12-78) U/L Alkaline Phosphatase (45-117) U/L Total Creatine Kinase (39-308) U/L CK-MB (CK-2) (0.5-3.6) ng/ml CK/CKMB % Calc (0-3.0) Troponin I (0-0.045) ng/ml Total Protein (6.4-8.2) gm/dl Albumin (3.4-5.0) gm/dl Globulin (2.5-4.0) gm/dl Albumin/Globulin Ratio (0.9-2) Lipase (73-393) U/L Procalcitonin (0-0.5) ng/ml TSH (0.300-4.500) uIu/ml Ethyl Alcohol mg/dL (0-3) mg/dl Click to Enter Labs Attestation My Impression Click to Enter My Impression Radiologist's Impression [facility]calCS[facility],[phone]:Napoleon FRANK dmitDate:07/13/19MR#:[id number]:428TUN[address]ELROADAcctID:[id number] :[id number]:CityStZip:[id number]:54Location:EDSex:MRoom/Bed:AttPhy:Diagnosis: backpainPriPhy:LauraM. Felix,DOServiceDate:07/13/19FamPhy:LauraM. Donavan,DOInterpretingPhy:Er icMVilbertMDAdmitPhy :OrderingPhy:KevinM. Elizabeth,[facility]:~CTSCANOFTHECHEST,ABDOMEN,ANDPELVISWITHIVCONT RAST;CTSCANOFTHETHOR ACICSPINEWITHOUTIVCONTRASTCLINICALHISTORY:Atypicalchestpain.Thoracicbackpain.Anais erfailure.COMPARISON STUDY:Lumbarspineradiographsdated08/03/2014.TECHNIQUE:FollowingtheIVadministration in66leHglfusr541,CTs canofthechestwasperformedfromthethoracicinlettotheupperabdomen.Subsequently,foll owingasecondinjectio xci93fcriOlmhuth285,CTscanoftheabdomenandpelvisisperformedfromthelungbasestothep roximalfemora.Images arereviewedintheaxial,sagittal,andcoronalplanes.IVcontrastwasadministeredwithout complication.Additio charles,unenhancedCTscanofthethoracicspineisperformedfromthelowercervicalspinetoth eupperlumbarspine.Th ethoracicspinalCTscanisalsoreviewedintheaxial,sagittal,andcoronalplanes.IVcontra stwasnotadministered specificallyforthethoracicspineCT.Adoseloweringtechniquewasutilizedadheringtothe principlesofALARA.CT DOSE:392.15mGy.cmFINDINGS:CHEST:Thyroid:Imagedportionsofthethyroidglandarenormal insizeandattenuation .Low-ljeqixtcxigoxlmtqprlivbabzabksvcgzap49fa.Thoracicaorta:Thereismildatheroscl eroticcalcificationo fthethoracicaorta,whichisnormalincaliberanddemonstrates4-vesselvariantarchanatom y.Nodissectionisseen .Pulmonaryvasculature:Thepulmonarytrunkisnormalincaliber.Therearenofillingdefect sidentifiedinthecent ralpulmonaryvesselstoindicatepulmonaryembolus.Notethatthisexaminationwasnotproto coledforevaluationof thepulmonaryarteriesandthepulmonaryvesselsarenotwellopacified.Heart:Theheartisno rmalinsizeandwithout pericardialeffusion.Therearecoronaryarterycalcifications.Lungsandpleuralspaces:M oderateemphysematous changeisidentified.Thereisnoairspaceconsolidationtypicalforpneumoniaorpleuraleff usion.Thereisa2.2x2. 1x1.4cmspiculatedlow-attenuationnodulardensityidentifiedalongtheleftmajorfissure seenonimage#124.A5mm leftlowerlobenoduleseenimage#245.R8obagvfuogjplevvcahxduavaqqtkkflrtgubidfmztois nimage#238.Additiona ewnwhnmdbhf-wv-wvzfdbrbeuhzcmuzubvfhjgyvslyjcpqzrtqcdfnnzhh.Thetracheaandcentral airwaysareclear.Medi astinum:Therearescatteredsubcentimetermediastinallymphnodes.Thesearenotpathologi callyenlargedbysizec riteria.Demetra:Clear.Axillae:Thereisnoaxillarylymphadenopathy.Bonythorax:Seebelowf ordedicatedassessmen tofthethoracicspine.Theskeletalstructuresareheterogeneouslyosteopenic.Therearepe rmeativeosteolyticme tastaticlesions.Therearenumerouslesionsidentifiedthroughoutthethoracicspine.Lesi onsarealsopresentwit hinseveralribsandthebodyofthesternum.Arightscapularlesionisseenonimage#53involvi ngtheposteriorglenoi d.Therearenumerousright-sidedribfractureswhichareageindeterminant.THORACICSPINE: Numeroussubtlepermea tiveosseousmetastaticlesionsareseenthroughoutthethoracicspine.Thereisapermeative nvtggyaypmtracttcE18 withamildtomoderatecompressiondeformity.Therearealsomildcompressiondeformitiesof T7,T8,jkpU7krwsvoejw lsolikelypathologic.ApermeativelesionisclearlyseeninthebodyofT9.Asofttissuecompo nentfromalesioninthe xpypofT3qinhjgnhjzpacmaebtieopiapxnatuecedmpirvl.Thetransverseandspinousprocesse sareintact.Apermeati velesionisseeninvolvingthelefttransverseprocessofT8.Thereisinvolvementofbothtran sverseprocessesofT3. Thediscspacesarepreserved.Thereisnoevidenceoflargedischerniationorhigh-gradecent ralcanalstenosisbyCT .Softtissues:Thepatientiscachectic.A3.2x2.5cmheterogeneousmassispresentintheleft paraspinoussofttissu esposteriortothelefttransverseprocessofT2.Thisisbestseenonaxialimage#27oftheches tCT.A1.0cmsofttissue noduleispresentwithinthesubcutaneoussofttissuesoftheleftposteriorshoulderasseeno nimage#72.ABDOMENAND PELVIS:Liver:Thecontrast-enhancedliverisenlarged,auvtbmtwfhnpt73styzfkrzns.Theli verisheterogeneousin attenuation.Therearenumerouslow-attenuationhepaticlesionswhicharehighlyconcernin gformetastaticdiseas e.Ozgnoekmobdhfpnfihhzbfunbkrhxlwxqszeiepsixeozzraptroonalnwoohncxlidnxim60jmcnt ength.Alargelesionis alsoidentifiedinthecaudatelobe.Thereisnointrahepaticbiliaryductaldilatation.Theh epaticveinsandportal veinsarepatent.Therightportalveinappearsattenuated.Gallbladder:Thegallbladderisd istendedbutotherwise normalinappearance.Spleen:Normalinsizeandattenuation.Pancreas:Moderatelyatrophic andgrosslyunremarkab le.Adrenalglands:Unremarkable.Kidneys:Thecontrastenhancedkidneysarenormalinsizea ndwithouthydronephro sis.Thekidneysenhanceandexcretesymmetrically.ExcretedIVcontrastfillstherenalcoll ectingsystemsanduret ers.Abdominalvasculature:Theabdominalaortaisnormalincourseandcalibernotingmodera tetoadvancedatherosc leroticcalcification.Bowel:Thereisnobowelobstruction.Therearescatteredcolonicdiv erticulawithoutCTevi denceofacutediverticulitis.Residualentericcontrastisnotedintherightcolon.Theappe ndixiswell-visualize dandnormal.Peritoneum:Thereisnointraperitonealfreeair.Traceabdominopelvicascites isnoted.Lymphadenopa thy:Enlargedportahepaticlymphnodesmeasureupto2.4cminlength.Anaortocavalnodeonima ge#950hialcglu5.2cmi nshortaxis.Pelvicviscera:Theprostateglandismildlyenlargedandheterogeneous.Thebla dderwallisthickeneda ndtrabeculatedsuggestingchronicoutletobstruction.Aleft-sidedvaricoceleisnoted.Sk eletalstructures:The skeletalstructuresareheterogeneouslyosteopenic.Therearenumeroussubtlepermeativem etastaticlesionsiden tifiedinthelumbosacralspineandbonypelvis.Alesiontheleftiliacwingisseenonimage#22 5.Thereisalesioninth cbngzuxhhnamwynkvxidwemvV0zagafwnzjrd#158.Alargelesionisseenwithinthespinousproc essandlaminaeofL4.So fttissues:U4jfyqrluchupvhgvwmjuavekwidnkvzkchqlgfmuzoheyrchlrlrcpxqsgpdtpmus#161 .IMPRESSION:1.Findin gsareconsistentwithwidespreadmetastaticdisease.2.Emphysema.3.Thereisa2.2cmspicul atedpulmonarynodulea longtheleftmajorfissure.4.Findingsareconsistentwithsubtlemultifocalosseousmetast aticdisease.5.Therea repermeativedestructivelesionsinthethoracicspinewithpresumedpathologiccompressio ndeformitiesofT7,T8, T9,andT11.6.Additionalosseousmetastaticdepositsaredetailedabove.7.Thereisalargeh eterogeneoussofttiss uemasswithintheleftposteriorparaspinoussofttissuesatthelevelofT2.8.Additionalsub cutaneousnodulesinth eleftposteriorshoulderandtheleftlowerbackareconcerningformetastaticdeposits.9.Th ereisevidenceofmulti focalhepaticmetastaticdisease.10.R52xepqhoonoqflbxq-qwceignniiyaaqdrc/regioninth erighthepaticlobelik elyrepresentsconfluentmetastaticdisease.Geographicsteatosisorinfarctareconsidere dmuchlesslikely.11.T herearepathologicallyenlargedupperabdominalandretroperitoneallymphnodes.12.There istraceabdominopelvi cascites.13.YvlirltcpqvpoeymxapqbieyutpidfppyfdpdvyygqzhhumbztzbI3ucwotyqgrunplw n.Thisminimallyeffac estheanteriorepiduralspace.Thisdoesnotcausesignificantspinalstenosis.14.Addition alsubcentimeterpulmo narynodulesaredetailedabove.15.Lovcgduqcwgxannfhpv-br-lcjefdwzgdomeibqjwbksrmszg hroughoutbothlungsan dsuggestamildinfectious/inflammatorypneumonitis.Clinicalcorrelationwillberequire d.16.Additionalfindi ngsasabove.[id number]:Negativeornotrequiredbylaw.Electronicallysignedby:Tony Nicole:18PMD ictated:07/12/[id number]mYrowgCqvoewl,[id number] portPatient:Napoleon FRANK ENNETHAdmitDate:07/13/19MR#:[id number]:428TUNNELROADAcctID:[id number] ddress2:[id number] Date:1965CityStZip:[id number]:54Location:EDSex:MRoom/Bed:AttPhy:Keysha gnosis:backpainPriPh y:LauraM. Donavan,DOServiceDate:07/13/19FamPhy:LauraM. Donavan,DOInterpretin gPhy:EricMVilbertMDA dmitPhy:OrderingPhy:KevinM. Elizabeth,MDcc:~CTSCANOFTHEBRAINWITHOUTIVCONTRASTCLIN ICALHISTORY:Changein mentalstatus.COMPARISONSTUDY:Nopriors.TECHNIQUE:UnenhancedaxialCTscanofthebraini sperformedfromthever textotheskullbase.AdoseloweringtechniquewasutilizedadheringtotheprinciplesofALAR A.Theexaminationismo destlydegradedbymotionartifact.CTDOSE:1538.23mGy.cmFINDINGS:Brainparenchyma:Theb rainparenchymaisnorm alinappearance.Thereisnohemorrhage,masseffect,orevidenceofacuteterritorialischem iabyCTcriteria.Watters- whitematterdifferentiationispreserved.Noextra-axialfluidcollectionisseen.Ventric les,sulci,cisterns:N ormalinconfiguration.Intracranialvasculature:Thereisatheroscleroticcalcification ofthecavernouscaroti darteries.Calvarium:Unremarkable.Sinusesandmastoids:Thevisualizedparanasalsinuse sareclear.Themastoid aircellsarewellpneumatized.Orbits:Thebonyorbitsaregrosslyintact.IMPRESSION:Noacu teintracranialabnorm ality.[id number]:Negativeornotrequiredbylaw.Electronicallysignedby:Tony Nicole6:37PMDictated:07/12/[id number]: Prescription Drug Monitoring Prescription Drug Findings Post eriorEKGshowsasinustachycardiawithleftaxisdeviationanterolateralinfarctoldinferi auqwxdbosyjpxivRDrwdszknregqsmpes410 Blood Pressure Findings Blood Pressure Disposition Additional Comments Click to Enter Additional Comments * MDM Narrative Click to Enter MDM Narrative Brian Frank 54, M1965 ADM IN, 2N N283 -2 6ft 55kg BMI: 16.4kg/m Search Chart No Data to Display ONSET Today 21:43 *from earlier documentation Signed 07/13/19 Signed 07/13/19 Signed 07/13/19 Signed 07/13/19 Signed 07/13/19 Trop I WBC Hb Hct Plt PT INR PTT BUN Cr Na K BSG Glu Mg Total Bili Lipase BRIAN FRANK 54 M 1965 SIGN [facility], [place] [phone] CT Scan Report Patient: Susanne FRANK Date: 07/13/19 MR#: [id number]: [address] Acct ID:[id number]: [address] Date: 1965City Zip: [place] [address] Age: 54Location: ED Sex: M Room/Bed: Att Phy:Diagnosis: back pain Edith Phy: Lakeisha Go, DOService Date: 07/13/19 Fam Phy: Lakeisha Go, DOInterpreting Phy: Adebayo Gaytan MD Admit Phy: Ordering Phy: Boris Johnson MD cc: ~ CT SCAN OF THE CHEST, ABDOMEN, AND PELVIS WITH IV CONTRAST; CT SCAN OF THE THORACIC SPINE WITHOUT IV CONTRAST CLINICAL HISTORY: Atypical chest pain. Thoracic back pain. Liver failure. COMPARISON STUDY: Lumbar spine radiographs dated 08/03/2014. TECHNIQUE: Following the IV administration of 94 of Optiray 320, CT scan of the chest was performed from the thoracic inlet to the upper abdomen. Subsequently, following a second injection of 55 cc of Optiray 320, CT scan of the abdomen and pelvis is performed from the lung bases to the proximal femora. Images are reviewed in the axial, sagittal, and coronal planes. IV contrast was administered without complication. Additionally, unenhanced CT scan of the thoracic spine is performed from the lower cervical spine to the upper lumbar spine. The thoracic spinal CT scan is also reviewed in the axial, sagittal, and coronal planes. IV contrast was not administered specifically for the thoracic spine CT. A dose lowering technique was utilized adhering to the principles of ALARA. CT DOSE: 392.15 mGy.cm FINDINGS: CHEST: Thyroid: Imaged portions of the thyroid gland are normal in size and atte nuation. Low-attenuation thyroid nodules measure up to 10 mm. Thoracic aorta: There is mild atherosclerotic calcification of the thoracic aorta, which is normal in caliber and demonstrates 4-vessel variant arch anatomy. No dissection is seen. Pulmonary vasculature: The pulmonary trunk is normal in caliber. There are no filling defects identified in the central pulmonary vessels to indicate pulmo nary embolus. Note that this examination was not protocoled for evaluation of the pulmonary arteries and the pulmonary vessels are not well opacified. Heart: The heart is normal in size and without pericardial effusion. There are coronary artery calcifications. Lungs and pleural spaces: Moderate emphysematous change is identified. There is no airspace consolidation typical for pneumonia or pleural effusion. There is a 2.2 x 2.1 x 1.4 cm spiculated low-attenuation nodular density identified along the left major fissure seen on image #124. A 5 mm left lower lobe nodule seen image #245. A 9 mm nodular density at the medial right lung base seen on image #238. Additional foci of tree-in-bud nodularity are scattered throughout both lungs. The trachea and central airways are clear. Mediastinum: There are scattered subcentimeter mediastinal lymph nodes. These are not pathologically enlarged by size criteria. Demetra: Clear. Axillae: There is no axillary lymphadenopathy. Bony thorax: See below for dedicated assessment of the thoracic spine. The skeletal structures are heterogeneously osteopenic. There are permeative osteolytic metastatic lesions. There are numerous lesions identified throughout the thoracic spine. Lesions are also present within several ribs and the body of the sternum. A right scapular lesion is seen on image #53 involving the posterior glenoid. There are numerous right-sided rib fractures which are age indeterminant. THORACIC SPINE: Numerous subtle permeative osseous metastatic lesions are seen throughout the thoracic spine. There is a permeative lesion in the body of T11 with a mild to moderate compression deformity. There are also mild compression deformities of T7, T8, and T9 which are also likely pathologic. A permeative lesion is clearly seen in the body of T9. A soft tissue component from a lesion in the body of T9 minimally effaces the anterior epidural space. The transverse and spinous processes are intact. A permeative lesion is seen involving the left transverse process of T8. There is involvement of both transverse processes of T3. The disc spaces are preserved. There is no evidence of large disc herniation or high-grade central canal stenosis by CT. Soft tissues: The patient is cachectic. A 3.2 x 2.5 cm heterogeneous mass is present in the left paraspinous soft tissues posterior to the left transverse process of T2. This is best seen on axial image #[address] A 1.0 cm soft tissue nodule is present within the subcutaneous soft tissues of the left posterior shoulder as seen on image #72. ABDOMEN AND PELVIS: Liver: The contrast-enhanced liver is enlarged, measuring over 18 cm in length. The liver is heterogeneous in attenuation. There are numerous low-attenuation hepatic lesions which are highly concerning for metastatic disease. A large geographic region of diminished attenuation in the right lobe measures over 12 cm in length. A large lesion is also identified in the caudate lobe. There is no intrahepatic biliary ductal dilatation. The hepatic veins and portal veins are patent. The right portal vein appears attenuated. Gallbladder: The gallbladder is distended but otherwise normal in appearance. Spleen: Normal in size and attenuation. Pancreas: Moderately atrophic and grossly unremarkable. Adrenal glands: Unremarkable. Kidneys: The contrast enhanced kidneys are normal in size and without hydrone phrosis. The kidneys enhance and excrete symmetrically. Excreted IV contrast fills the renal collecting systems and ureters. Abdominal vasculature: The abdominal aorta is normal in course and caliber noting moderate to advanced atherosclerotic calcification. Bowel: There is no bowel obstruction. There are scattered colonic diverticula without CT evidence of acute diverticulitis. Residual enteric contrast is noted in the right colon. The appendix is well-visualized and normal. Peritoneum: There is no intraperitoneal free air. Trace abdominopelvic ascites is noted. Lymphadenopathy: Enlarged kalyan hepatic lymph nodes measure up to 2.4 cm in length. An aortocaval node on image #147 measures 1.2 cm in short axis. Pelvic viscera: The prostate gland is mildly enlarged and heterogeneous. The bladder wall is thickened and trabeculated suggesting chronic outlet obstruction. A left-sided varicocele is noted. Skeletal structures: The skeletal structures are heterogeneously osteopenic. There are numerous subtle permeative metastatic lesions identified in the lumbosacral spine and bony pelvis. A lesion the left iliac wing is seen on image #225. There is a lesion in the left transverse process of L3 seen on image #158. A large lesion is seen within the spinous process and laminae of L4. Soft tissues: A 9 mm subcutaneous soft tissue nodule is present in the left lower back on image #161. IMPRESSION: 1. Findings are consistent with widespread metastatic disease. 2. Emphysema. 3. There is a 2.2 cm spiculated pulmonary nodule along the left major fissure. 4. Findings are consistent with subtle multifocal osseous metastatic disease. 5. There are permeative destructive lesions in the thoracic spine with presumed pathologic compression deformities of T7, T8, T9, and T11. 6. Additional osseous metastatic deposits are detailed above. 7. There is a large heterogeneous soft tissue mass within the left posterior paraspinous soft tissues at the level of T2. 8. Additional subcutaneous nodules in the left posterior shoulder and the left lower back are concerning for metastatic deposits. 9. There is evidence of multifocal hepatic metastatic disease. 10. A 12 cm geographic low-attenuation lesion/region in the right hepatic lobe likely represents confluent metastatic disease. Geographic steatosis or infarct are considered much less likely. 11. There are pathologically enlarged upper abdominal and retroperitoneal lymph nodes. 12. There is trace abdominopelvic ascites. 13. There is mild posterior cortical breakthrough involving the T9 vertebral lesion. This minimally effaces the anterior epidural space. This does not cause significant spinal stenosis. 14. Additional subcentimeter pulmonary nodules are detailed above. 15. Scattered foci of tree-in-bud nodularity are scattered throughout both lungs and suggest a mild infectious/inflammatory pneumonitis. Clinical correlation will be required. 16. Additional findings as above. ACT 112: Negative or not required by law. Electronically signed by: Adebayo Gaytan M.D. 07/13/2019 7:18 PM Dictated: 07/13/19 [address] [place], [place] [phone] CT Scan Report Patient: Susanne FRANK Date: 07/13/19 MR#: [id number]: [address] [place] [address] ROAD Acct ID:[id number]: [address] Date: 1965[facility] Zip: [place] [address] Age: 54Location: ED Sex: M Room/Bed: Att Phy:Diagnosis: back pain Edith Phy: Lakeisha Go, DOService Date: 07/13/19 Fam Phy: Lakeisha Go, DOInterpreting Phy: Adebayo Gaytan MD Admit Phy: Ordering Phy: Boris Johnson MD cc: ~ CT SCAN OF THE CHEST, ABDOMEN, AND PELVIS WITH IV CONTRAST; CT SCAN OF THE THORACIC SPINE WITHOUT IV CONTRAST CLINICAL HISTORY: Atypical chest pain. Thoracic back pain. Liver failure. COMPARISON STUDY: Lumbar spine radiographs dated 08/03/2014. TECHNIQUE: Following the IV administration of 94 of Optiray 320, CT scan of the chest was performed from the thoracic inlet to the upper abdomen. Subsequently, following a second injection of 55 cc of Optiray 320, CT scan of the abdomen and pelvis is performed from the lung bases to the proximal femora. Images are reviewed in the axial, sagittal, and coronal planes. IV contrast was administered without complication. Additionally, unenhanced CT scan of the thoracic spine is performed from the lower cervical spine to the upper lumbar spine. The thoracic spinal CT scan is also reviewed in the axial, sagittal, and coronal planes. IV contrast was not administered specifically for the thoracic spine CT. A dose lowering technique was utilized adhering to the principles of ALARA. CT DOSE: 392.15 mGy.cm FINDINGS: CHEST: Thyroid: Imaged portions of the thyroid gland are normal in size and attenuation. Low-attenuation thyroid nodules measure up to 10 mm. Thoracic aorta: There is mild atherosclerotic calcification of the thoracic aorta, which is normal in caliber and demonstrates 4-vessel variant arch anatomy. No dissection is seen. Pulmonary vasculature: The pulmonary trunk is normal in caliber. There are no filling defects identified in the central pulmonary vessels to indicate pulmonary embolus. Note that this examination was not protocoled for evaluation of the pulmonary arteries and the pulmonary vessels are not well opacified. Heart: The heart is normal in size and without pericardial effusion. There are coronary artery calcifications. Lungs and pleural spaces: Moderate emphysematous change is identified. There is no airspace consolidation typical for pneumonia or pleural effusion. There is a 2.2 x 2.1 x 1.4 cm spiculated low-attenuation nodular density identified along the left major fissure seen on image #124. A 5 mm left lower lobe nodule seen image #245. A 9 mm nodular density at the medial right lung base seen on image #238. Additional foci of tree-in-bud nodularity are scattered throughout both lungs. The trachea and central airways are clear. Mediastinum: There are scattered subcentimeter mediastinal lymph nodes. These are not pathologically enlarged by size criteria. Demetra: Clear. Axillae: There is no axillary lymphadenopathy. Bony thorax: See below for dedicated assessment of the thoracic spine. The skeletal structures are heterogeneously osteopenic. There are permeative osteo lytic metastatic lesions. There are numerous lesions identified throughout the thoracic spine. Lesions are also present within several ribs and the body of the sternum. A right scapular lesion is seen on image #53 involving the posterior glenoid. There are numerous right-sided rib fractures which are age indeterminant. THORACIC SPINE: Numerous subtle permeative osseous metastatic lesions are seen throughout the thoracic spine. There is a permeative lesion in the body of T11 with a mild to moderate compression deformity. There are also mild compression deformities of T7, T8, and T9 which are also likely pathologic. A permeative lesion is clearly seen in the body of T9. A soft tissue component from a lesion in the body of T9 minimally effaces the anterior epidural space. The transverse and spinous processes are intact. A permeative lesion is seen involving the left transverse process of T8. There is involvement of both transverse processes of T3. The disc spaces are preserved. There is no evidence of large disc herniation or high-grade central canal stenosis by CT. Soft tissues: The patient is cachectic. A 3.2 x 2.5 cm heterogeneous mass is present in the left paraspinous soft tissues posterior to the left transverse process of T2. This is best seen on axial image #[address] A 1.0 cm soft tissue nodule is present within the subcutaneous soft tissues of the left posterior shoulder as seen on image #72. ABDOMEN AND PELVIS: Liver: The contrast-enhanced liver is enlarged, measuring over 18 cm in length. The liver is heterogeneous in attenuation. There are numerous low-attenuation hepatic lesions which are highly concerning for metastatic disease. A large geographic region of diminished attenuation in the right lobe measures over 12 cm in length. A large lesion is also identified in the caudate lobe. There is no intrahepatic biliary ductal dilatation. The hepatic veins and portal veins are patent. The right portal vein appears attenuated. Gallbladder: The gallbladder is distended but otherwise normal in appearance. Spleen: Normal in size and attenuation. Pancreas: Moderately atrophic and grossly unremarkable. Adrenal glands: Unremarkable. Kidneys: The contrast enhanced kidneys are normal in size and without hydronephrosis. The kidneys enhance and excrete symmetrically. Excreted IV contrast fills the renal collecting systems and ureters. Abdominal vasculature: The abdominal aorta is normal in course and caliber noting moderate to advanced atherosclerotic calcification. Bowel: There is no bowel obstruction. There are scattered colonic diverticula without CT evidence of acute diverticulitis. Residual enteric contrast is noted in the right colon. The appendix is well-visualized and normal. Peritoneum: There is no intraperitoneal free air. Trace abdominopelvic ascites is noted. Lymphadenopathy: Enlarged kalyan hepatic lymph nodes measure up to 2.4 cm in length. An aortocaval node on image #147 measures 1.2 cm in short axis. Pelvic viscera: The prostate gland is mildly enlarged and heterogeneous. The bladder wall is thickened and trabeculated suggesting chronic outlet obstruction. A left-sided varicocele is noted. Skeletal structures: The skeletal structures are heterogeneously osteopenic. There are numerous subtle permeative metastatic lesions identified in the lumbosacral spine and bony pelvis. A lesion the left iliac wing is seen on image #225. There is a lesion in the left transverse process of L3 seen on image #158. A large lesion is seen within the spinous process and laminae of L4. Soft tissues: A 9 mm subcutaneous soft tissue nodule is present in the left lower back on image #161. IMPRESSION: 1. Findings are consistent with widespread metastatic disease. 2. Emphysema. 3. There is a 2.2 cm spiculated pulmonary nodule along the left major fissure. 4. Findings are consistent with subtle multifocal osseous metastatic disease. 5. There are permeative destructive lesions in the thoracic spine with presumed pathologic compression deformities of T7, T8, T9, and T11. 6. Additional osseous metastatic deposits are detailed above. 7. There is a large heterogeneous soft tissue mass within the left posterior paraspinous soft tissues at the level of T2. 8. Additional subcutaneous nodules in the left posterior shoulder and the left lower back are concerning for metastatic deposits. 9. There is evidence of multifocal hepatic metastatic disease. 10. A 12 cm geographic low-attenuation lesion/region in the right hepatic lobe likely represents confluent metastatic disease. Geographic steatosis or infarct are considered much less likely. 11. There are pathologically enlarged upper abdominal and retroperitoneal lymph nodes. 12. There is trace abdominopelvic ascites. 13. There is mild posterior cortical breakthrough involving the T9 vertebral lesion. This minimally effaces the anterior epidural space. This does not cause significant spinal stenosis. 14. Additional subcentimeter pulmonary nodules are detailed above. 15. Scattered foci of tree-in-bud nodularity are scattered throughout both lungs and suggest a mild infectious/inflammatory pneumonitis. Clinical correlation will be required. 16. Additional findings as above. ACT 112: Negative or not required by law. Electronically signed by: Adebayo Gaytan M.D. 07/13/2019 7:18 PM Dictated: 07/13/19 [address] [place], [place] [phone] Ultrasound Report Patient: Susanne FRANK Date: 07/13/19 MR#: [id number]: [address] Acct ID:[id number]: [address] Date: 1965City Zip: [place] [address] Age: 54Location: ED Sex: M Room/Bed: Att Phy:Diagnosis: back pain Edith Phy: Lakeisha Go, DOService Date: 07/13/19 Fam Phy: Lakeisha Go, DOInterpreting Phy: Adebayo Gaytan MD Admit Phy: Ordering Phy: Boris Johnson MD cc: ~ ULTRASOUND RIGHT UPPER QUADRANT ABDOMEN CLINICAL HISTORY: Liver failure. COMPARISON STUDY: Abdominal CT performed the same day 07/13/2019. TECHNIQUE: Real-time, grayscale, and color flow sonography of the right upper quadrant of the abdomen was performed. Images are reviewed in the transverse and longitudinal planes. FINDINGS: Liver: The liver is enlarged measuring over 18 cm in length. The liver is hete rogeneous in echotexture. There are numerous hypoechoic hepatic lesions consistent with metastatic disease when correlated with today's CT. The largest measures at least 9 cm in length. There is no intrahepatic biliary ductal dilatation. The main portal vein is patent. Gallbladder: The gallbladder is mildly distended. Biliary sludge is noted. No shadowing gallstones are identified. There is no gallbladder wall thickening or pericholecystic fluid. A sonographic Mcgee's sign is reportedly absent. The common bile duct measures up to 0.5 cm in diameter. Pancreas: Visualized portions of the pancreatic head and body are normal in appearance. The splenic vein is patent. Right kidney: Survey images of the right kidney demonstrate normal size and echotexture. There is no hydronephrosis. Ascites: There is trace perihepatic ascites. IMPRESSION: 1. The liver is enlarged with evidence of multifocal hepatic metastatic disease. 2. There is biliary sludge. No shadowing gallstones are identified. 3. There is trace upper abdominal ascites. ACT 112: Negative or not required by law. Electronically signed by: Adebayo Gaytan M.D. 07/13/2019 8:05 PM Dictated: 07/13/192002 Transcribed: 07/13/192002 ECG Data Attestation: I personally reviewed and interpreted this ECG as follows: Indication: + chest pain Rate (beats per minute): 135 Rhythm: + sinus tachycardia ECG [place]: + Left axis deviation ECG ST segments: + ST depression (Inferior); no ST elevation ECG Findings: + Q waves (Anterior) Comparison ECG Date: no prior available Prescription Drug Monitoring Prescription Drug Findings: Posterior EKG shows a sinus tachycardia with left axis deviation anterolateral infarct old inferior depressions no ST elevations rate of 133 Blood Pressure Blood Pressure Findings: Low blood pressure MDM Narrative This is a 54-year-old male who presents emergency department complaining of confusion. Talking with the patient's daughter the decision was made to send the patient for CAT scan of the head chest abdomen and pelvis. This is concerning for metastatic disease throughout the body. I did discuss these findings with the patient's family. In the meanwhile his lactate is elevated he was given a normal saline bolus x2. His T bili is also elevated. I did discuss the case with the hospitalist service who did agree to meet the patient. Impression & Plan Acidosis, lactic, Thoracic back pain, Metastatic cancer Discharge Plan Visit Data *Final* Discharge Date/Time: 07/13/19 21:03 Chief Complaint: Back Injury/Pain Stated Complaint: back pain ED Provider: Boris Johnson Discharge Problem: Acidosis, lactic, Thoracic back pain, Metastatic cancer Patient Disposition: Admitted As Inpatient Discharge Instructions Interventions: ED Discharge Assessment Last Done: 07/13/19 21:03 Discharge Problem: Thoracic back pain Qualifiers: Chronicity: acute Back pain laterality: midline Qualified Code(s): M54.6 - Pain in thoracic spine
[2019-07-13] MEDS ORDERED: MULTI-VITAMIN INFUSION 10 ML, THIAMINE HCL 100 MG, FOLIC ACID 1 MG in SODIUM CHLORIDE 0... IV ONE (17:38)
[2019-07-13 18:10] LABS: iSTAT Creatinine 1.3 mg/dl (0.6-1.3); iSTAT Ionized Calcium 1.53 mmol/l (1.12-1.32); iSTAT Potassium 3.8 mmol/L (3.3-5.0)
[2019-07-13 18:31] LABS: INR 1.5 (0.9-1.1); Partial Thromboplastin Time 28.2 Seconds (21.0-31.0); Prothrombin Time 15.4 Seconds (9.0-12.0)
[2019-07-13] MEDS ORDERED: IOVERSOL 100ml IV PRN ×2 (18:43→18:45)
--- NOTE | 2019-07-13 18:46 | CT Scan Report ---
CT SCAN OF THE BRAIN WITHOUT IV CONTRAST CLINICAL HISTORY: Change in mental status. COMPARISON STUDY: No priors. TECHNIQUE: Unenhanced axial CT scan of the brain is performed from the vertex to the skull base. A d ose lowering technique was utilized adhering to the principles of ALARA. The examination is modestly degraded by motion artifact. CT DOSE: 1538.23 mGy.cm FINDINGS: Brain parenchyma: The brain parenchyma is normal in appearance. There is no hemorrhage, mass effect, or evidence of acute territorial ischemia by CT criteria. Watters-white matter differentiation is preser romeo. No extra-axial fluid collection is seen. Ventricles, sulci, cisterns: Normal in configuration. Intracranial vasculature: There is atherosclerotic calcification of the cavernous carotid arteries. Calvarium: Unremarkable. Sinuses and mastoids: The visualized paranasal sinuses are clear. The mastoid air cells are well pneu matized. Orbits: The bony orbits are grossly intact. IMPRESSION: No acute intracranial abnormality. ACT 112: Negative or not required by law. Electronically signed by: Adebayo Gaytan M.D. 07/13/2019 6:37 PM
[2019-07-13 18:53] LABS: Alanine Aminotransferase 63 U/L (12-78); Albumin Globulin Ratio 0.4 (0.9-2); Albumin Level 2.4 gm/dl (3.4-5.0); Alkaline Phosphatase 659 U/L (45-117); Aspartate Aminotransferase 216 U/L (15-37); BUN Creatinine Ratio 19.7 (10-20); Bilirubin,Total 2.5 mg/dl (0.2-1); Blood Urea Nitrogen 27 mg/dl (7-18); Carbon Dioxide 26 mmol/L (21-32); Chloride 93 mmol/L (98-107); Creatine Kinase 169 U/L (39-308); Creatine Kinase MB 1.5 ng/ml (0.5-3.6); Creatinine Clr Calc Pharmacy 42.7 ml/min; Est GFR (African American) 66.2; Est GFR (Non-African American) 57.1; Globulin 5.7 gm/dl (2.5-4.0); Glucose 98 mg/dl (70-99); Lipase 49 U/L (73-393); Potassium 3.6 mmol/L (3.5-5.1); Sodium 131 mmol/L (136-145); Total Protein 8.1 gm/dl (6.4-8.2); Troponin I < 0.015 ng/ml (0-0.045)
[2019-07-13] MEDS ORDERED: SODIUM CHLORIDE 0.9% 1000ML 1,000 ML IV ONE (19:01)
[2019-07-13 19:17] LABS: Hematocrit (blood only) 45.5 % (42-52); Hemoglobin 15.9 g/dL (14.0-18.0); Mean Corpuscular Hemoglobin 35.6 pg (25-34); Mean Corpuscular Hgb Conc 34.9 g/dL (32-36); Mean Corpuscular Volume 101.8 fL (80-100); Platelet Count 119 K/uL (130-400); RDW Coefficient of Variation 15.2 % (11.5-14.5); RDW Standard Deviation 55.7 fL (36.4-46.3); Red Blood Count 4.47 M/uL (4.7-6.1); White Blood Count 10.05 K/uL (4.8-10.8)
--- NOTE | 2019-07-13 19:19 | CT Scan Report ---
CT SCAN OF THE CHEST, ABDOMEN, AND PELVIS WITH IV CONTRAST; CT SCAN OF THE THORACIC SPINE WITHOUT IV CONTRAST CLINICAL HISTORY: Atypical chest pain. Thoracic back pain. Liver failure. COMPARISON STUDY: Lumbar spine radiographs dated 08/03/2014. TECHNIQUE: Following the IV administration of 94 of Optiray 320, CT scan of the chest was performed f rom the thoracic inlet to the upper abdomen. Subsequently, following a second injection of 55 cc of O ptiray 320, CT scan of the abdomen and pelvis is performed from the lung bases to the proximal femora . Images are reviewed in the axial, sagittal, and coronal planes. IV contrast was administered withou t complication. Additionally, unenhanced CT scan of the thoracic spine is performed from the lower c ervical spine to the upper lumbar spine. The thoracic spinal CT scan is also reviewed in the axial, s agittal, and coronal planes. IV contrast was not administered specifically for the thoracic spine CT. A dose lowering technique was utilized adhering to the principles of ALARA. CT DOSE: 392.15 mGy.cm FINDINGS: CHEST: Thyroid: Imaged portions of the thyroid gland are normal in size and attenuation. Low-attenuation thy roid nodules measure up to 10 mm. Thoracic aorta: There is mild atherosclerotic calcification of the thoracic aorta, which is normal in caliber and demonstrates 4-vessel variant arch anatomy. No dissection is seen. Pulmonary vasculature: The pulmonary trunk is normal in caliber. There are no filling defects identif ied in the central pulmonary vessels to indicate pulmonary embolus. Note that this examination was no t protocoled for evaluation of the pulmonary arteries and the pulmonary vessels are not well opacifie d. Heart: The heart is normal in size and without pericardial effusion. There are coronary artery calcif ications. Lungs and pleural spaces: Moderate emphysematous change is identified. There is no airspace consolida tion typical for pneumonia or pleural effusion. There is a 2.2 x 2.1 x 1.4 cm spiculated low-attenuat ion nodular density identified along the left major fissure seen on image #124. A 5 mm left lower lob e nodule seen image #245. A 9 mm nodular density at the medial right lung base seen on image #238. Ad ditional foci of tree-in-bud nodularity are scattered throughout both lungs. The trachea and central airways are clear. Mediastinum: There are scattered subcentimeter mediastinal lymph nodes. These are not pathologically enlarged by size criteria. Demetra: Clear. Axillae: There is no axillary lymphadenopathy. Bony thorax: See below for dedicated assessment of the thoracic spine. The skeletal structures are he terogeneously osteopenic. There are permeative osteolytic metastatic lesions. There are numerous lesi ons identified throughout the thoracic spine. Lesions are also present within several ribs and the evette dy of the sternum. A right scapular lesion is seen on image #53 involving the posterior glenoid. Ther e are numerous right-sided rib fractures which are age indeterminant. THORACIC SPINE: Numerous subtle permeative osseous metastatic lesions are seen throughout the thoraci c spine. There is a permeative lesion in the body of T11 with a mild to moderate compression deformit y. There are also mild compression deformities of T7, T8, and T9 which are also likely pathologic. A permeative lesion is clearly seen in the body of T9. A soft tissue component from a lesion in the bod y of T9 minimally effaces the anterior epidural space. The transverse and spinous processes are intac t. A permeative lesion is seen involving the left transverse process of T8. There is involvement of b oth transverse processes of T3. The disc spaces are preserved. There is no evidence of large disc her niation or high-grade central canal stenosis by CT. Soft tissues: The patient is cachectic. A 3.2 x 2.5 cm heterogeneous mass is present in the left para spinous soft tissues posterior to the left transverse process of T2. This is best seen on axial image #[address] A 1.0 cm soft tissue nodule is present within the subcutaneous soft tissues of the left posterior shoulder as seen on image #72. ABDOMEN AND PELVIS: Liver: The contrast-enhanced liver is enlarged, measuring over 18 cm in length. The liver is heteroge neous in attenuation. There are numerous low-attenuation hepatic lesions which are highly concerning for metastatic disease. A large geographic region of diminished attenuation in the right lobe measure s over 12 cm in length. A large lesion is also identified in the caudate lobe. There is no intrahepat ic biliary ductal dilatation. The hepatic veins and portal veins are patent. The right portal vein ap pears attenuated. Gallbladder: The gallbladder is distended but otherwise normal in appearance. Spleen: Normal in size and attenuation. Pancreas: Moderately atrophic and grossly unremarkable. Adrenal glands: Unremarkable. Kidneys: The contrast enhanced kidneys are normal in size and without hydronephrosis. The kidneys enh ance and excrete symmetrically. Excreted IV contrast fills the renal collecting systems and ureters. Abdominal vasculature: The abdominal aorta is normal in course and caliber noting moderate to advance d atherosclerotic calcification. Bowel: There is no bowel obstruction. There are scattered colonic diverticula without CT evidence of acute diverticulitis. Residual enteric contrast is noted in the right colon. The appendix is well-vi sualized and normal. Peritoneum: There is no intraperitoneal free air. Trace abdominopelvic ascites is noted. Lymphadenopathy: Enlarged kalyan hepatic lymph nodes measure up to 2.4 cm in length. An aortocaval nod e on image #147 measures 1.2 cm in short axis. Pelvic viscera: The prostate gland is mildly enlarged and heterogeneous. The bladder wall is thickene d and trabeculated suggesting chronic outlet obstruction. A left-sided varicocele is noted. Skeletal structures: The skeletal structures are heterogeneously osteopenic. There are numerous subtl e permeative metastatic lesions identified in the lumbosacral spine and bony pelvis. A lesion the lef t iliac wing is seen on image #225. There is a lesion in the left transverse process of L3 seen on im age #158. A large lesion is seen within the spinous process and laminae of L4. Soft tissues: A 9 mm subcutaneous soft tissue nodule is present in the left lower back on image #161. IMPRESSION: 1. Findings are consistent with widespread metastatic disease. 2. Emphysema. 3. There is a 2.2 cm spiculated pulmonary nodule along the left major fissure. 4. Findings are consistent with subtle multifocal osseous metastatic disease. 5. There are permeative destructive lesions in the thoracic spine with presumed pathologic compressio n deformities of T7, T8, T9, and T11. 6. Additional osseous metastatic deposits are detailed above. 7. There is a large heterogeneous soft tissue mass within the left posterior paraspinous soft tissues at the level of T2. 8. Additional subcutaneous nodules in the left posterior shoulder and the left lower back are concern ing for metastatic deposits. 9. There is evidence of multifocal hepatic metastatic disease. 10. A 12 cm geographic low-attenuation lesion/region in the right hepatic lobe likely represents conf luent metastatic disease. Geographic steatosis or infarct are considered much less likely. 11. There are pathologically enlarged upper abdominal and retroperitoneal lymph nodes. 12. There is trace abdominopelvic ascites. 13. There is mild posterior cortical breakthrough involving the T9 vertebral lesion. This minimally e ffaces the anterior epidural space. This does not cause significant spinal stenosis. 14. Additional subcentimeter pulmonary nodules are detailed above. 15. Scattered foci of tree-in-bud nodularity are scattered throughout both lungs and suggest a mild i nfectious/inflammatory pneumonitis. Clinical correlation will be required. 16. Additional findings as above. ACT 112: Negative or not required by law. Electronically signed by: Adebayo Gaytan M.D. 07/13/2019 7:18 PM
[2019-07-13] MEDS ORDERED: AMPICILLIN/SULBACTAM SOD 3,000 MG in 0.9 % SODIUM CHLORIDE 100 ML IV STA (19:31)
[2019-07-13 19:39] LABS: Basophils # (auto) 0.06 K/uL (0-0.2); Basophils % (auto) 0.6 %; Eosinophils # (auto) 0.09 K/uL (0-0.5); Eosinophils % (auto) 0.9 %; Immature Granulocytes # (auto) 0.04 K/uL (0.00-0.02); Immature Granulocytes % (auto) 0.4 %; Lymphocytes # (auto) 2.21 K/uL (1.2-3.4); Macrocytosis Present; Monocytes # (auto) 0.86 K/uL (0.11-0.59); Monocytes % (auto) 8.6 %; Neutrophils # (auto) 6.79 K/uL (1.4-6.5); Neutrophils % (auto) 67.5 %
[2019-07-13] MEDS ORDERED: POTASSIUM CHLORIDE 20 MEQ TABCR PO STA (19:43)
[2019-07-13 19:56] LABS: Phosphorus 3.7 mg/dl (2.5-4.9); Thyroid Stimulating Hormone 9.58 uIu/ml (0.300-4.500)
[2019-07-13] MEDS ORDERED: GABAPENTIN 600 MG TAB PO STA (20:07)
--- NOTE | 2019-07-13 20:07 | Ultrasound Report ---
ULTRASOUND RIGHT UPPER QUADRANT ABDOMEN CLINICAL HISTORY: Liver failure. COMPARISON STUDY: Abdominal CT performed the same day 07/13/2019. TECHNIQUE: Real-time, grayscale, and color flow sonography of the right upper quadrant of the abdomen was performed. Images are reviewed in the transverse and longitudinal planes. FINDINGS: Liver: The liver is enlarged measuring over 18 cm in length. The liver is heterogeneous in echotextur e. There are numerous hypoechoic hepatic lesions consistent with metastatic disease when correlated w [facility] today's CT. The largest measures at least 9 cm in length. There is no intrahepatic biliary ductal dilatation. The main portal vein is patent. Gallbladder: The gallbladder is mildly distended. Biliary sludge is noted. No shadowing gallstones ar e identified. There is no gallbladder wall thickening or pericholecystic fluid. A sonographic Mcgee' s sign is reportedly absent. The common bile duct measures up to 0.5 cm in diameter. Pancreas: Visualized portions of the pancreatic head and body are normal in appearance. The splenic v ein is patent. Right kidney: Survey images of the right kidney demonstrate normal size and echotexture. There is no hydronephrosis. Ascites: There is trace perihepatic ascites. IMPRESSION: 1. The liver is enlarged with evidence of multifocal hepatic metastatic disease. 2. There is biliary sludge. No shadowing gallstones are identified. 3. There is trace upper abdominal ascites. ACT 112: Negative or not required by law. Electronically signed by: Adebayo Gaytan M.D. 07/13/2019 8:05 PM
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
[2019-07-13] MEDS ORDERED: NORMOSOL-R 500 ML IV ONE (20:10)
[2019-07-13 21:11] LABS: Appearance Urine Clear (Clear); Bacteria Urine Automated Negative (Negative); Blood Urine Negative (Negative); Color Urine Dark Yellow; Glucose Urine UA Negative (Negative); Ketones Urine Trace (Negative); Leukocyte Esterase Urine Negative (Negative); Nitrite Urine Negative (Negative); Protein Urine Trace (Negative); Specific Gravity Urine > 1.045 (1.000-1.030); Urobilinogen Urine Negative (Negative)
[2019-07-13 21:14] LABS: Bilirubin Urine Negative (Negative); Ictotest Urine Negative (Negative)
[2019-07-13 21:20] LABS: BUN Creatinine Ratio 33.1 (10-20); Calcium 6.7 mg/dl (8.5-10.1); Creatinine Clr Calc Pharmacy 105.2 ml/min; Est GFR (Non-African American) 116.4
[2019-07-13] MEDS ORDERED: DEXTROSE 50% 50 ML SYRINGE IV ONE (21:24)
[2019-07-13 21:28] LABS: Amphetamines+Metham, Urine Neg (Neg); Barbiturates, Urine Neg (Neg); Benzodiazepine, Urine Neg (Neg); Cocaine, Urine Neg (Neg); MDMA (Ecstacy), Urine Neg (Neg); Methadone, Urine Neg (Neg); Opiate, Urine Pos (Neg); Phencyclidine, Urine Neg (Neg)
[2019-07-13] MEDS ORDERED: LORazepam 1 MG/2 ML VIAL IV PRN (21:36)
[2019-07-13] MEDS ORDERED: PROMETHAZINE HCL 12.5 MG in SODIUM CHLORIDE 0.9% 50 ML IV PRN (21:36)
[2019-07-13] MEDS ORDERED: GABAPENTIN 800MG ALCOHOL WITHDRAWAL LOAD PO STA (21:36)
[2019-07-13] MEDS ORDERED: LORazepam 2 MG/4 ML VIAL IV PRN (21:36)
[2019-07-13] MEDS ORDERED: LORazepam 3 MG/6 ML VIAL IV PRN (21:36)
[2019-07-13] MEDS ORDERED: OXYCODONE HCL IR 5 MG TAB (IMMEDIATE RELEASE) PO PRN (21:36)
[2019-07-13] MEDS ORDERED: D5W AND LACTATED RINGERS 1,000 ML IV SCH (21:36)
[2019-07-13] MEDS ORDERED: XOPENEX/ATROVENT 1.25mg/0.5MG NEB COMBO NEB STA (21:36)
[2019-07-13] MEDS ORDERED: ATIVAN IV ALCOHOL WITHDRAWL IV PRN (21:36)
[2019-07-13] MEDS ORDERED: IPRATROPIUM BROMIDE NEB SOLN 0.02% 2.5 ML VIAL INH STA (21:42)
[2019-07-13] MEDS ORDERED: MoRPHine SULFATE 2 MG/ML CARP IV PRN (21:43)
[2019-07-13] MEDS ORDERED: LEVALBUTEROL 1.25MG/0.5ML NEB INH STA (21:43)
[2019-07-13] MEDS ORDERED: SODIUM BICARB 8.4% INJ 50 MEQ/50 ML SYR IV STA (21:44)
[2019-07-13] MEDS ORDERED: AMPICILLIN/SULBACTAM CONSULT ACTIVE PRN (21:50)
[2019-07-13] MEDS ORDERED: MAGNESIUM SULFATE / D5W 1 GM/100 ML BAG IV ONE (22:00)
[2019-07-13] MEDS ORDERED: LACTATED RINGER'S 1,000 ML IV ONE (22:24)
[2019-07-14 00:57] LABS: BUN Creatinine Ratio 25.3 (10-20); Creatinine Clr Calc Pharmacy 66.3 ml/min; Est GFR (African American) 100.2; Est GFR (Non-African American) 86.4
[2019-07-14] MEDS ORDERED: VANCOMYCIN CONSULT ACTIVE PRN (00:57)
[2019-07-14] MEDS ORDERED: PIPERACILL/TAZOBAC CONSULT ACTIVE PRN (00:58)
--- NOTE | 2019-07-14 01:06 | Communication Note ---
Date of Service: July 14, 2019 Made aware of lactic acid of 3.7 from 2.3 from 5.1. AP Worsening lactic acidosis Severe sepsis ? paraspinal tumor (? Abscess versus infected tumor) and cdif as additional foci DC Unasyn Broaden antibiotic coverage to Vancomycin and Zosyn for now Discuss CT finding with radiologist in a.m. May need Orthopedics spine opinion pending discussion with radiology. IV Flagyl 1 dose now given severe sepsis criteria until C. difficile ruled out (patient unable to swallow safely as per nurse eval) ADDENDUM : Case discussed with radiologist fabrication machine operator, Dr. Cerda. Paraspinal soft tissue mass likely metastatic disease not abscess as per radiologist review of CT images from last night.
[2019-07-14] MEDS: LIDOCAINE 5% 1 PATCH TD SCH ×2 (01:11→22:17)
[2019-07-14] MEDS ORDERED: PIPERACILLIN/TAZOBACTAM 4.5 GM in DEXTROSE 5% 100 ML IV ONE (01:15)
[2019-07-14] MEDS ORDERED: LACTATED RINGER'S 1,000 ML IV SCH ×2 (01:15→07:00)
[2019-07-14] MEDS ORDERED: VANCOMYCIN HCL 1,500 MG in SODIUM CHLORIDE 0.9% 500 ML IV ONE (01:15)
[2019-07-14] MEDS: GABAPENTIN 400 MG CAP PO SCH ×4 (01:24→23:29)
[2019-07-14] MEDS ORDERED: metroNIDAZOLE 500 MG/100 ML BAG IV STA (01:54)
[2019-07-14] MEDS ORDERED: AMPICILLIN/SULBACTAM SOD 3,000 MG in 0.9 % SODIUM CHLORIDE 100 ML IV SCH (02:00)
[2019-07-14] MEDS ORDERED: D5W AND LACTATED RINGERS 1,000 ML IV SCH (02:30)
[2019-07-14] MEDS ORDERED: LACTATED RINGER'S 1,000 ML IV STA (04:56)
[2019-07-14] MEDS: PIPERACILLIN/TAZOBACTAM 3.375 GM in DEXTROSE 5% 100 ML IV SCH ×3 (05:09→23:25)
[2019-07-14 05:47] LABS: Basophils # (auto) 0.06 K/uL (0-0.2); Basophils % (auto) 0.7 %; Eosinophils # (auto) 0.12 K/uL (0-0.5); Eosinophils % (auto) 1.4 %; Hematocrit (blood only) 36.5 % (42-52); Hemoglobin 12.2 g/dL (14.0-18.0); Immature Granulocytes # (auto) 0.02 K/uL (0.00-0.02); Immature Granulocytes % (auto) 0.2 %; Lymphocytes # (auto) 1.82 K/uL (1.2-3.4); Lymphocytes % (auto) 21.2 %; Mean Corpuscular Hemoglobin 34.1 pg (25-34); Mean Corpuscular Hgb Conc 33.4 g/dL (32-36); Mean Platelet Volume 11.7 fL (7.4-10.4); Monocytes # (auto) 0.75 K/uL (0.11-0.59); Monocytes % (auto) 8.8 %; Neutrophils % (auto) 67.7 %; Platelet Count 100 K/uL (130-400); RDW Coefficient of Variation 15.2 % (11.5-14.5); RDW Standard Deviation 55.8 fL (36.4-46.3); Red Blood Count 3.58 M/uL (4.7-6.1); White Blood Count 8.57 K/uL (4.8-10.8)
[2019-07-14 05:50] LABS: INR 1.4 (0.9-1.1); Prothrombin Time 14.9 Seconds (9.0-12.0)
[2019-07-14 06:00] LABS: Albumin Level 1.8 gm/dl (3.4-5.0); BUN Creatinine Ratio 21.9 (10-20); Creatinine Clr Calc Pharmacy 64.9 ml/min; Est GFR (African American) 97.8; Est GFR (Non-African American) 84.4; Potassium 3.6 mmol/L (3.5-5.1)
[2019-07-14] MEDS ORDERED: MAGNESIUM SULFATE / D5W 1 GM/100 ML BAG IV ONE (06:02)
[2019-07-14 06:11] LABS: Albumin Globulin Ratio 0.4 (0.9-2); Bilirubin,Total 2.1 mg/dl (0.2-1); Globulin 4.2 gm/dl (2.5-4.0)
[2019-07-14] MEDS: POTASSIUM CHLORIDE / WTR 10 MEQ/100 ML PLCT IV SCH ×4 (06:17→10:00)
[2019-07-14 06:44] LABS: Magnesium 1.8 mg/dl (1.8-2.4); T4 Free Thyroxine 1.21 ng/dl (0.8-1.6)
[2019-07-14 08:35] LABS: T3 Total 0.62 ng/ml (0.60-1.81); Vitamin D, 25 Hydrox 15.2 ng/ml (30-100)
[2019-07-14] MEDS ORDERED: THIAMINE HCL 100 MG TAB PO SCH (09:00)
[2019-07-14] MEDS ORDERED: FOLIC ACID 1 MG TAB PO SCH (09:00)
[2019-07-14] MEDS ORDERED: UMECLIDINIUM/VILANTEROL 62.5/25MCG 7 PUFFS/INHALER INH SCH (09:00)
[2019-07-14] MEDS ORDERED: MULTIVITAMIN TAB PO SCH (09:00)
[2019-07-14 09:21] LABS: BUN Creatinine Ratio 21.2 (10-20); Calcium 10.7 mg/dl (8.5-10.1); Creatinine Clr Calc Pharmacy 72.6 ml/min; Est GFR (African American) 108.1; Est GFR (Non-African American) 93.3
--- NOTE | 2019-07-14 10:03 | Electrocardiogram Report ---
Test Reason : Blood Pressure : / mmHG Vent. Rate : 135 BPM Atrial Rate : 135 BPM P-R Int : 112 ms QRS Dur : 084 ms QT Int : 368 ms P-R-T Axes : 063 -50 097 degrees QTc Int : 552 ms Sinus tachycardia Left axis deviation Poor R wave progression, consider anterior NH vs. lead placement vs. LVH Abnormal ECG No previous ECGs available Confirmed by Amaury Waterman ([id number]) on 07/14/2019 10:02:57 AM Referred By: REFERRED SELF Confirmed By:Amaury Waterman
--- NOTE | 2019-07-14 10:13 | Electrocardiogram Report ---
Test Reason : Blood Pressure : / mmHG Vent. Rate : 133 BPM Atrial Rate : 133 BPM P-R Int : 112 ms QRS Dur : 084 ms QT Int : 386 ms P-R-T Axes : 083 -31 098 degrees QTc Int : 574 ms Sinus tachycardia Left axis deviation Cannot rule out Anterolateral infarct , age undetermined Abnormal ECG When compared with ECG of 13-JUL-2019 17:16, ST depression in Anterior leads no longer present Loss of R waves across precordium (? lead placment, may be right sided leads?) Confirmed by Amaury Waterman ([id number]) on 07/14/2019 10:12:38 AM Referred By: REFERRED SELF Confirmed By:Amaury Waterman
[2019-07-14 10:15] LABS: Base Excess ABG 0.6 mEq/L (-9-1.8); HCO3 ABG 24 mmol/L (19-24); PCO2 ABG 34 mmHg (35-46); PO2 ABG 66 mmHg (80-95); pH ABG 7.47 (7.35-7.45)
[2019-07-14 10:16] LABS: Allen Test Pos (Pos)
--- NOTE | 2019-07-14 10:43 | XRay Report ---
XR chest 1V portable HISTORY: 54 years-old Male tachypnea, incr. work of breathing acute tachypnea with shortness of jeimy th COMPARISON: Chest CT 07/13/2019 TECHNIQUE: Portable AP view of the chest FINDINGS: Cardiomediastinal and hilar silhouettes are within normal limits. 2.1 cm left midlung nodule redemons trated. Interval development of asymmetric interstitial coarsening throughout the right lung with rig ht lung base alveolar opacities. Emphysema. No pneumothorax. Trace right pleural effusion. Previously described soft tissue and osseous lesions of the thorax are better seen on comparison chest CT. Mult iple healed remote right-sided rib fractures. IMPRESSION: 1. Interval development of asymmetric right midlung and basilar opacities suggestive of pulmonary bernabe ma, atelectasis or pneumonitis. 2. Emphysema. 3. Trace right pleural effusion. 4. Suspicious 2.1 cm nodule of the left midlung redemonstrated. ACT 112: Negative or not required by law. The above report was generated using voice recognition software. It may contain grammatical, syntax o r spelling errors. Electronically signed by: Eliazar Cerda M.D. 07/14/2019 10:42 AM
[2019-07-14] MEDS ORDERED: RAPID SEQUENCE INDUCTION BAG ONE (11:09)
--- NOTE | 2019-07-14 11:35 | Hospitalist Progress Note ---
Date of Service July 14, 2019 Assessment & Plan Admission and Anticipated Discharge Date Admission Date: July 13, 2019 Subjective Change of CODE STATUS to DNR/DNI/comfort care Called patient's daughter Honey Krueger, who is his current POA, daughter states that she found patient's legal paperwork, where he states DNR/DNI. She wishes to follow her father's wishes. She was also informed about the severity of his health condition, and need for ICU and aggressive medical treatment in case we would try to save his life. I also discussed the case with Dr. Tucker, who would admit the patient to the ICU. Given patient's current condition, and underlying metastatic disease, prognosis is very poor. Results & Data Results & Data ([facility]) Vital Signs (Past 12 Hours) Vital Signs Temp Pulse Pulse Resp BP BP Pulse Ox 07/14/19 11:23 77 20 92 07/14/19 11:15 128 H 38 H 99/70 L 91 07/14/19 11:01 126 H 32 H 93/67 L 07/14/19 09:31 36.3 C L 130 H 38 H 93/61 L 94 07/14/19 08:35 36.8 C 97 H 18 87/57 L 92 07/14/19 04:21 36.4 C L 130 H 22 94/63 L 94 07/14/19 02:48 129 H 07/14/19 00:00 92 07/13/19 23:39 36.7 C 123 H 18 83/52 L 92
[2019-07-14] MEDS: VANCOMYCIN HCL 750 MG in SODIUM CHLORIDE 0.9% 250 ML IV SCH ×2 (12:48→23:27)
--- NOTE | 2019-07-14 13:47 | Pharmacy Report ---
Pharmacy Abx Initial Consult - Date of Service July 14, 2019 - Pharmacy Dosing Scope Date of Consult: 07/14/19 Consultation requested by: Dr. Snow Pharmacy is consulted to initiate Vancomycin and Zosyn IV dosing therapy, order appropriate labs and adjust drug dose/frequency. - Subjective The patient is a 54 year old M admitted on 07/13/19 20:27. - Objective Height: 6 ft Weight: 56.6 kg Vital Signs (Past 12hrs): Vital Signs Temp Pulse Pulse Resp BP Pulse Ox 07/14/19 12:51 132 H 28 H 105/76 91 07/14/19 11:51 37.0 C 130 H 20 105/73 96 07/14/19 11:23 77 20 92 07/14/19 11:15 128 H 38 H 99/70 L 91 07/14/19 11:01 126 H 32 H 93/67 L 07/14/19 09:31 36.3 C L 130 H 38 H 93/61 L 94 07/14/19 08:35 36.8 C 97 H 18 87/57 L 92 07/14/19 08:00 132 H 07/14/19 04:21 36.4 C L 130 H 22 94/63 L 94 07/14/19 02:48 129 H Lab Results (24hrs): Laboratory Tests (24 Hours) 07/14/19 07/14/19 07/14/19 08:55 05:21 05:21 WBC 8.57 Neut # (Auto) 5.80 Creatinine 0.92 1.00 Est Cr Clr Drug Dosing 72.6 64.9 Total Creatine Kinase Procalcitonin 07/14/19 07/13/19 07/13/19 00:19 20:45 18:08 WBC Neut # (Auto) Creatinine 0.98 D 0.56 L D Est Cr Clr Drug Dosing 66.3 105.2 Total Creatine Kinase Procalcitonin 1.23 H 07/13/19 07/13/19 17:35 17:35 WBC 10.05 Neut # (Auto) 6.79 H Creatinine 1.38 Est Cr Clr Drug Dosing 42.7 Total Creatine Kinase 169 Procalcitonin Micro Results: 07/13/19 18:08 Aerobic Blood Culture - Pending Blood Anaerobic Blood Culture - Pending 07/13/19 18:08 Aerobic Blood Culture - Pending Blood Anaerobic Blood Culture - Pending - Assessment & Plan Assessment 54 year old M presenting to the ED with confusion and burning/stabbing back pain. Patient had a CAT scan of head, chest, abdomen and pelvis. Concern for metastatic disease throughout his body. Aspiration episode noted at the ER. Chest x-ray shows opacities. Blood cultures x2 currently pending Plan Vancomycin and Zosyn for treatment of possible aspiration pneumonia Vancomycin IV * Estimated PK Parameters: Vd 0.7 L/kg, Froy 0.058 hr-1, t1/2 12 hr * Loading dose: 1500 mg (27 mg/kg) * Maintenance dose: 750 mg IV (13.5 mg/kg) every 12 hours * Goal trough level for PNA: 15 to 20 mcg/mL * Trough level ordered for 07/15/19 at 1130 Piperacillin/tazobactam * 3.375 g bolus administered over 30 minutes, then 3.375g IV extended infusion every 8 hours for CrCl greater than 20 mL/min Pharmacy will continue to follow and will adjust dose/frequency as necessary. Thank you.
--- NOTE | 2019-07-14 16:27 | Consultation Report ---
DATE OF CONSULTATION: 07/14/2019 HISTORY OF PRESENT ILLNESS: The patient is a 54-year-old male who is at this time severely encephalopathic and unable to give me any history. The patient has history significant for severe COPD, alcoholic cirrhosis with severe cachexia, anxiety disorder, chronic thrombocytopenia as well as unclear history of malignancy, who presented to the hospital yesterday because of increasing confusion, ambulatory problem, back pain. He was found to have very high serum calcium of 13 for which I have been consulted. Overnight, the patient got lot of IV fluid. This morning he is even more unstable hemodynamically and is now with respiratory failure requiring BiPAP. Blood pressure is low and pulse rate is high and he is in the process of being potentially transferred to ICU. With the use of IV fluid overnight calcium has normalized and this morning was down to 10.7. He is making urine, although not clear. His lactic acid level was high and rising. He is presumed to be septic at this time. IV fluid has been turned off after the patient developed respiratory failure. PAST MEDICAL AND SURGICAL HISTORY: Includes possible metastatic malignancy with lung as the primary, severe COPD, alcoholic cirrhosis, history of right renal mass already cleared by urology one year ago, hypothyroidism, ongoing tobacco and alcohol abuse, cachexia, likely secondary to malignancy. FAMILY HISTORY: Negative for renal disease or dialysis. PERSONAL AND SOCIAL HISTORY: Daily smoking and alcohol. 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 ALLERGIES: None. HOME MEDICATIONS: List was reviewed in detail and includes albuterol inhaler, cyclobenzaprine, folic acid, Percocet as needed, hydroxyzine as needed, inhalers. REVIEW OF SYSTEMS: Unable to obtain from the patient. Based on the review of the chart, the main complaint was increasing confusion and ambulatory issues as well as back pain. PHYSICAL EXAMINATION: GENERAL: The patient is not oriented. He is encephalopathic, did not open eyes on command, He is on a BiPAP. VITAL SIGNS: Blood pressure is low at 90 systolic, heart rate is 130. The patient appears extremely cachectic. SKIN: Normal color. HEENT: Mucous membrane is dry. NECK: Supple. No jugular venous distention. CHEST: Bilateral decreased breath sounds, bilateral basal crackles. CARDIOVASCULAR: Tachycardic. Soft systolic murmur heard. ABDOMEN: Slight distention, nontender. EXTREMITIES: Shows no edema. NEUROLOGIC: Disoriented, encephalopathic. LABORATORY TESTS: Reviewed in detail. At the time of admission, calcium was 13.0, it is trending down and the most recent one is 10.7. Blood work from this morning shows a lactic acid of 3.2, BUN 20, creatinine 0.92, sodium 137, potassium 4.0, hemoglobin was concentrated at 15.9 at the time of admission, but it is down to 12.2 this morning. Platelet count 100. Chest x-ray done earlier showed multiple findings including possible pulmonary edema, emphysema as well as right pleural effusion. Abdominal pelvis CT scan done showed no renal findings. His multiple findings noted with possible widespread metastatic disease. ASSESSMENT AND PLAN: A 54-year-old male who presented with increasing confusion and was noted to have hypercalcemia for which I have been consulted. Hypercalcemia: This appears to be secondary to widespread metastatic cancer with a possible primary in the lung. This is well known cause of hypercalcemia. with the use of IV fluid calcium iis trending down. He did receive aggressive IV hydration overnight but now with the development of pulmonary edema, I agree with stopping that. I would give 4 doses of calcitonin to help bring the calcium down, but this is more of a cosmetic treatment as his underlying issue of metastatic cancer is still there. The patient has a DNR and DNI in his living will. Defer to primary service to decide about the level of care. FISH
--- NOTE | 2019-07-14 19:17 | Hospitalist Progress Note ---
Date of Service July 14, 2019 Assessment & Plan (1) Encephalopathy: Multifactorial : Sepsis (possible sources include aspiration pneumonitis, ? Paraspinous mass, diarrhea rule out C. difficile) Alcohol withdrawal Hypercalcemia secondary to clinical dehydration, ? malignancy New diagnosis probable metastatic malignancy (possible lung primary) hx COPD as per records alcoholic cirrhosis, no overt decompensation chronic thrombocytopenia secondary to above hx right renal mass as per records [place] to be benign as per [place] [facility] [place]. No renal mass on CT imaging done at the ER today. Elevated TSH, possible hypothyroidism ongoing tobacco/alcohol abuse. Cachexia likely secondary to malignancy A/P: Pt was admitted to Medical telemetry - now considering upgrade to ICU given pt's clinical condition (per daughter, pt's POA, pt is DNR/DNI and wishes for comfort care measures) Cultures, Unasyn initially for possible aspiration pneumonitis, then Abx coverage broadened by admitting physician/mitten stitcher to vancomycin and Zosyn as patient's lactate was still elevated on admission Aspiration precautions for now, n.p.o. until swallow evaluation done Stool C. difficile IVF, follow lactic acid Lactic acid persistently elevated, despite aggressive fluid resuscitation and broad-spectrum antibiotic -Pt continues to be encephalopathic, he is also hypotensive, despite aggressive fluid resuscitation, tachycardic, tachypneic. ICU and family contacted. After thorough discussion, family/POA decided to proceed with DNR/DNI CODE STATUS (per patient's written wishes), and not to proceed with further aggressive treatments. Family wishes to visit the patient. Hypercalcemia -Most likely secondary to malignancy -work-up, Nephrology consult RE hypercalcemia -Calcium down after IV fluids -Calcitonin to help bring calcium down, however clearly this will not change the underlying issue, widespread metastatic disease Plan was to contact patient[place] [facility] [place] (Dr. Murray) regarding recommendations for probable metastatic malignancy work-up. Possible inpatient Radiation Oncology and Pain Management consultations if pt becomes stabilized. At this point pt is in critical position. Discussed poss. ICU upgrade, vs. comfort care, family/ POA, decided for comfort care measures. DT precautions Nutrition consult for malnutrition, low BMI once diet advanced. Nicotine patch PRN DVT prophylaxis. SCDs RE thrombocytopenia DNR/DNI/ comfort care as per px daughter, Ms. Honey Krueger Zac, pt's POA - code status discussed in detail over the phone today (07/14/2019) She can be contacted thru phone numbers [phone]. Alternative contact is patient's close friend, ?ex-, (not ), . Honey Frank, contact #[phone]. Admission and Anticipated Discharge Date Admission Date: July 13, 2019 Subjective Patient admitted overnight, this morning patient is hypotensive, tachycardic, tachypneic, not able to respond to any questions, respirations 38, blood pressures in the 90s over 60s, max despite aggressive fluid resuscitation, currently patient is on his fifth liter of fluid, receiving LR 200/h. Very tachypneic, concern for fluid overload, stat chest x-ray ordered, as well as ABG. Contacted Dr. Tucker, equity manager in ICU for possible ICU admission. Patient is certainly a candidate for intubation, and possible pressor support, and Dr. Tucker agrees to admit him to ICU if patient is full code. Contacted patient's daughter Ms. Honey Krueger, who is his POA, and informed her about the severity of situation, as her father is in poor condition and in need of aggressive medical treatment if we are trying to save his life. Patient was determined full code on admission, however now daughter states that she was able to find a legal paperwork done by her father, where he stated DNR/DNI, and she wants to follow her father's wishes. She understands that his prognosis is very poor, especially given the recent imaging done in the ER, consistent with metastatic disease. Honey Krueger is very interested in seeing her father and given current COVID-19 pandemic, visitations are very limited. However I also informed her that p atients on comfort measures, in very poor health condition are allowed visitations from family. I also confirmed this with the charge nurse on the floor, Josiane. I informed Honey Krueger that 1 family member at a time is allowed, they will be screened before coming to the hospital and they will have to wear a mask when visiting the patient. Honey Krueger understands that and plans to come visit her father. Change of CODE STATUS to DNR/DNI/comfort care Review of Systems Review of Systems: Unobtainable due to cognitive status Patient not answering questions, not responding Physical Exam Physical Exam: GENERAL: Cachectic, chronically ill appearing male lying in bed in respiratory distress HEENT: NC/AT, temporal wasting, PERRL, thin neck CHEST : Tachypneic with respirations of 38, on 2 L of nasal cannula, mild diffuse rhonchi on auscultation, no wheezing noted HEART : Tachycardic w/ HR 130 , no murmurs noted ABDOMEN: thin, +bowel sounds, some distention, seems nontender (diff. to assess d/t cogn. status) EXTREMITIES : No LE swelling, occasionally moves extremities spontaneously SKIN: Normal color, warm NEUROLOGIC: Patient able to open his eyes, however not able to answer any questions, no facial asymmetry noted, occasionally moves extremities spontaneously Results & Data Results & Data ([facility]) Vital Signs (Past 12 Hours) Vital Signs Temp Pulse Pulse Resp BP Pulse Ox 07/14/19 16:16 130 H 07/14/19 15:58 36.6 C 133 H 20 97/68 L 93 07/14/19 15:26 130 H 36 H 93 07/14/19 12:51 132 H 28 H 105/76 91 07/14/19 11:51 37.0 C 130 H 20 105/73 96 07/14/19 11:23 77 20 92 07/14/19 11:15 128 H 38 H 99/70 L 91 07/14/19 11:01 126 H 32 H 93/67 L 07/14/19 09:31 36.3 C L 130 H 38 H 93/61 L 94 07/14/19 08:35 36.8 C 97 H 18 87/57 L 92 07/14/19 08:00 132 H Laboratory Results 07/14/19 07/14/19 07/14/19 Range/Units 09:59 08:55 08:55 WBC (4.8-10.8) K/uL RBC (4.7-6.1) M/uL Hgb (14.0-18.0) g/dL Hct (42-52) % MCV (80-100) fL MCH (25-34) pg MCHC (32-36) g/dL RDW Std Deviation (36.4-46.3) fL RDW Coeff of Trista (11.5-14.5) % Plt Count (130-400) K/uL MPV (7.4-10.4) fL Immature Gran % (Auto) % Neut % (Auto) % Lymph % (Auto) % Mccracken % (Auto) % Eos % (Auto) % Baso % (Auto) % Immature Gran # (Auto) (0.00-0.02) K/uL Neut # (Auto) (1.4-6.5) K/uL Lymph # (Auto) (1.2-3.4) K/uL Mccracken # (Auto) (0.11-0.59) K/uL Eos # (Auto) (0-0.5) K/uL Baso # (Auto) (0-0.2) K/uL Macrocytosis PT (9.0-12.0) Seconds INR (0.9-1.1) ABG pH 7.47 H (7.35-7.45) ABG pCO2 34 L (35-46) mmHg ABG pO2 66 L (80-95) mmHg ABG HCO3 24 (19-24) mmol/L ABG O2 Saturation 92.0 (90-95) % ABG Base Excess 0.6 (-9-1.8) mEq/L Clint Test Pos (Pos) Barometric Pressure 731.0 mm/Hg Oxygen Given 2L Sodium 137 (136-145) mmol/L Potassium 4.0 (3.5-5.1) mmol/L Chloride 104 (98-107) mmol/L Carbon Dioxide 27 (21-32) mmol/L Anion Gap 6.0 (3-11) BUN 20 H (7-18) mg/dl Creatinine 0.92 (0.6-1.4) mg/dl Est Cr Clr Drug Dosing 72.6 ml/min Est GFR ( Amer) 108.1 Est GFR (Non-Af Amer) 93.3 BUN/Creatinine Ratio 21.2 H (10-20) Glucose 103 H (70-99) mg/dl POC Glucose (70-99) mg/dl Osmolality (280-300) mOsm/kg Lactate 3.2 H* (0.4-2.0) mmol/L Calcium 10.7 H (8.5-10.1) mg/dl Phosphorus (2.5-4.9) mg/dl Magnesium (1.8-2.4) mg/dl Total Bilirubin (0.2-1) mg/dl AST (15-37) U/L ALT (12-78) U/L Alkaline Phosphatase (45-117) U/L Ammonia (11-32) umol/L Total Protein (6.4-8.2) gm/dl Albumin (3.4-5.0) gm/dl Globulin (2.5-4.0) gm/dl Albumin/Globulin Ratio (0.9-2) 25-OH Vitamin D Total (30-100) ng/ml TSH (0.300-4.500) uIu/ml Free T4 (0.8-1.6) ng/dl Total T3 (0.60-1.81) ng/ml PTH Intact (18.4-80.1) pg/ml PTH Related Protein Urine Color Urine Appearance (Clear) Urine pH (4.5-7.5) Ur Specific [place] (1.000-1.030) Urine Protein (Negative) Urine Glucose (UA) (Negative) Urine Ketones (Negative) Urine Blood (Negative) Urine Nitrite (Negative) Urine Bilirubin (Negative) Urine Urobilinogen (Negative) Ur Leukocyte Esterase (Negative) Urine WBC (Auto) (0-5) /hpf Urine RBC (Auto) (0-4) /hpf U Hyaline Cast (Auto) (0-5) /lpf U Epithel Cells (Auto) (0-5) /lpf Urine Bacteria (Auto) (Negative) Nasal Screen MRSA (PCR) (Negative) Stool Occult Bld Scrn (Negative) Urine Opiates Screen (Neg) U Codeine Confrm GC/MS Ur Morphine (GC/MS) Ur Hydrocodone (GC/MS) Ur Norhydrocodone Ur Noroxycodone Urine Oxycodone (GC/MS) U Oxymorphone GC/MS Ur Methadone, Qual (Neg) Ur Hydromorphone (GC/MS) Urine Barbiturates (Neg) Ur Phencyclidine (PCP) (Neg) U Amphetamin/Meth Scrn (Neg) MDMA (Ecstasy) Screen (Neg) U Benzodiazepines Scrn (Neg) Ur Cocaine Metabolite (Neg) U Marijuana (THC) Screen (Neg) Drug Screen Comment Bld Cult Staph aureus PCR (Negative) Blood Culture MRSA PCR (Negative) 07/14/19 07/14/19 07/14/19 Range/Units 05:30 05:21 05:21 WBC (4.8-10.8) K/uL RBC (4.7-6.1) M/uL Hgb (14.0-18.0) g/dL Hct (42-52) % MCV (80-100) fL MCH (25-34) pg MCHC (32-36) g/dL RDW Std Deviation (36.4-46.3) fL RDW Coeff of Trista (11.5-14.5) % Plt Count (130-400) K/uL MPV (7.4-10.4) fL Immature Gran % (Auto) % Neut % (Auto) % Lymph % (Auto) % [place] % (Auto) % Eos % (Auto) % Baso % (Auto) % Immature Gran # (Auto) (0.00-0.02) K/uL Neut # (Auto) (1.4-6.5) K/uL Lymph # (Auto) (1.2-3.4) K/uL M[place]rack[place] # (Auto) (0.11-0.59) K/uL Eos # (Auto) (0-0.5) K/uL Baso # (Auto) (0-0.2) K/uL Macrocytosis PT (9.0-12.0) Seconds INR (0.9-1.1) ABG pH (7.35-7.45) ABG pCO2 (35-46) mmHg ABG pO2 (80-95) mmHg ABG HCO3 (19-24) mmol/L ABG O2 Saturation (90-95) % ABG Base Excess (-9-1.8) mEq/L Clint Test (Pos) Barometric Pressure mm/Hg Oxygen Given Sodium (136-145) mmol/L Potassium (3.5-5.1) mmol/L Chloride (98-107) mmol/L Carbon Dioxide (21-32) mmol/L Anion Gap (3-11) BUN (7-18) mg/dl Creatinine (0.6-1.4) mg/dl Est Cr Clr Drug Dosing ml/min Est GFR ( Amer) Est GFR (Non-Af Amer) BUN/Creatinine Ratio (10-20) Glucose (70-99) mg/dl POC Glucose (70-99) mg/dl Osmolality (280-300) mOsm/kg Lactate 3.0 H* (0.4-2.0) mmol/L Calcium (8.5-10.1) mg/dl Phosphorus (2.5-4.9) mg/dl Magnesium 1.8 (1.8-2.4) mg/dl Total Bilirubin (0.2-1) mg/dl AST (15-37) U/L ALT (12-78) U/L Alkaline Phosphatase (45-117) U/L Ammonia (11-32) umol/L Total Protein (6.4-8.2) gm/dl Albumin (3.4-5.0) gm/dl Globulin (2.5-4.0) gm/dl Albumin/Globulin Ratio (0.9-2) 25-OH Vitamin D Total (30-100) ng/ml TSH (0.300-4.500) uIu/ml Free T4 1.21 (0.8-1.6) ng/dl Total T3 (0.60-1.81) ng/ml PTH Intact (18.4-80.1) pg/ml PTH Related Protein Pending Urine Color Urine Appearance (Clear) Urine pH (4.5-7.5) Ur Specific [place] (1.000-1.030) Urine Protein (Negative) Urine Glucose (UA) (Negative) Urine Ketones (Negative) Urine Blood (Negative) Urine Nitrite (Negative) Urine Bilirubin (Negative) Urine Urobilinogen (Negative) Ur Leukocyte Esterase (Negative) Urine WBC (Auto) (0-5) /hpf Urine RBC (Auto) (0-4) /hpf U Hyaline Cast (Auto) (0-5) /lpf U Epithel Cells (Auto) (0-5) /lpf Urine Bacteria (Auto) (Negative) Nasal Screen MRSA (PCR) (Negative) Stool Occult Bld Scrn (Negative) Urine Opiates Screen (Neg) U Codeine Confrm GC/MS Ur Morphine (GC/MS) Ur Hydrocodone (GC/MS) Ur Norhydrocodone Ur Noroxycodone Urine Oxycodone (GC/MS) U Oxymorphone GC/MS Ur Methadone, Qual (Neg) Ur Hydromorphone (GC/MS) Urine Barbiturates (Neg) Ur Phencyclidine (PCP) (Neg) U Amphetamin/Meth Scrn (Neg) MDMA (Ecstasy) Screen (Neg) U Benzodiazepines Scrn (Neg) Ur Cocaine Metabolite (Neg) U Marijuana (THC) Screen (Neg) Drug Screen Comment Bld Cult Staph aureus PCR (Negative) Blood Culture MRSA PCR (Negative) 07/14/19 07/14/19 07/14/19 Range/Units 05:21 05:21 05:21 WBC (4.8-10.8) K/uL RBC (4.7-6.1) M/uL Hgb (14.0-18.0) g/dL Hct (42-52) % MCV (80-100) fL MCH (25-34) pg MCHC (32-36) g/dL RDW Std Deviation (36.4-46.3) fL RDW Coeff of Trista (11.5-14.5) % Plt Count (130-400) K/uL MPV (7.4-10.4) fL Immature Gran % (Auto) % Neut % (Auto) % Lymph % (Auto) % [place] % (Auto) % Eos % (Auto) % Baso % (Auto) % Immature Gran # (Auto) (0.00-0.02) K/uL Neut # (Auto) (1.4-6.5) K/uL Lymph # (Auto) (1.2-3.4) K/uL M[place]racken # (Auto) (0.11-0.59) K/uL Eos # (Auto) (0-0.5) K/uL Baso # (Auto) (0-0.2) K/uL Macrocytosis PT 14.9 H (9.0-12.0) Seconds INR 1.4 H (0.9-1.1) ABG pH (7.35-7.45) ABG pCO2 (35-46) mmHg ABG pO2 (80-95) mmHg ABG HCO3 (19-24) mmol/L ABG O2 Saturation (90-95) % ABG Base Excess (-9-1.8) mEq/L Clint Test (Pos) Barometric Pressure mm/Hg Oxygen Given Sodium 136 (136-145) mmol/L Potassium 3.6 (3.5-5.1) mmol/L Chloride 104 (98-107) mmol/L Carbon Dioxide 26 (21-32) mmol/L Anion Gap 6.0 (3-11) BUN 22 H (7-18) mg/dl Creatinine 1.00 (0.6-1.4) mg/dl Est Cr Clr Drug Dosing 64.9 ml/min Est GFR ( Amer) 97.8 Est GFR (Non-Af Amer) 84.4 BUN/Creatinine Ratio 21.9 H (10-20) Glucose 98 (70-99) mg/dl POC Glucose (70-99) mg/dl Osmolality (280-300) mOsm/kg Lactate (0.4-2.0) mmol/L Calcium 11.0 H (8.5-10.1) mg/dl Phosphorus (2.5-4.9) mg/dl Magnesium (1.8-2.4) mg/dl Total Bilirubin 2.1 H (0.2-1) mg/dl AST 188 H (15-37) U/L ALT 51 (12-78) U/L Alkaline Phosphatase 493 H (45-117) U/L Ammonia (11-32) umol/L Total Protein 6.0 L D (6.4-8.2) gm/dl Albumin 1.8 L (3.4-5.0) gm/dl Globulin 4.2 H (2.5-4.0) gm/dl Albumin/Globulin Ratio 0.4 L (0.9-2) 25-OH Vitamin D Total 15.2 L (30-100) ng/ml TSH 5.000 H (0.300-4.500) uIu/ml Free T4 (0.8-1.6) ng/dl Total T3 0.62 (0.60-1.81) ng/ml PTH Intact (18.4-80.1) pg/ml PTH Related Protein Urine Color Urine Appearance (Clear) Urine pH (4.5-7.5) Ur Specific [place] (1.000-1.030) Urine Protein (Negative) Urine Glucose (UA) (Negative) Urine Ketones (Negative) Urine Blood (Negative) Urine Nitrite (Negative) Urine Bilirubin (Negative) Urine Urobilinogen (Negative) Ur Leukocyte Esterase (Negative) Urine WBC (Auto) (0-5) /hpf Urine RBC (Auto) (0-4) /hpf U Hyaline Cast (Auto) (0-5) /lpf U Epithel Cells (Auto) (0-5) /lpf Urine Bacteria (Auto) (Negative) Nasal Screen MRSA (PCR) (Negative) Stool Occult Bld Scrn (Negative) Urine Opiates Screen (Neg) U Codeine Confrm GC/MS Ur Morphine (GC/MS) Ur Hydrocodone (GC/MS) Ur Norhydrocodone Ur Noroxycodone Urine Oxycodone (GC/MS) U Oxymorphone GC/MS Ur Methadone, Qual (Neg) Ur Hydromorphone (GC/MS) Urine Barbiturates (Neg) Ur Phencyclidine (PCP) (Neg) U Amphetamin/Meth Scrn (Neg) MDMA (Ecstasy) Screen (Neg) U Benzodiazepines Scrn (Neg) Ur Cocaine Metabolite (Neg) U Marijuana (THC) Screen (Neg) Drug Screen Comment Bld Cult Staph aureus PCR (Negative) Blood Culture MRSA PCR (Negative) 07/14/19 07/14/19 07/14/19 Range/Units 05:21 05:07 01:00 WBC 8.57 (4.8-10.8) K/uL RBC 3.58 L (4.7-6.1) M/uL Hgb 12.2 L D (14.0-18.0) g/dL Hct 36.5 L (42-52) % MCV 102.0 H (80-100) fL MCH 34.1 H (25-34) pg MCHC 33.4 (32-36) g/dL RDW Std Deviation 55.8 H (36.4-46.3) fL RDW Coeff of Trista 15.2 H (11.5-14.5) % Plt Count 100 L (130-400) K/uL MPV 11.7 H (7.4-10.4) fL Immature Gran % (Auto) 0.2 % Neut % (Auto) 67.7 % Lymph % (Auto) 21.2 % M[place]racken % (Auto) 8.8 % Eos % (Auto) 1.4 % Baso % (Auto) 0.7 % Immature Gran # (Auto) 0.02 (0.00-0.02) K/uL Neut # (Auto) 5.80 (1.4-6.5) K/uL Lymph # (Auto) 1.82 (1.2-3.4) K/uL M[place]rack[place] # (Auto) 0.75 H (0.11-0.59) K/uL Eos # (Auto) 0.12 (0-0.5) K/uL Baso # (Auto) 0.06 (0-0.2) K/uL Macrocytosis PT (9.0-12.0) Seconds INR (0.9-1.1) ABG pH (7.35-7.45) ABG pCO2 (35-46) mmHg ABG pO2 (80-95) mmHg ABG HCO3 (19-24) mmol/L ABG O2 Saturation (90-95) % ABG Base Excess (-9-1.8) mEq/L Clint Test (Pos) Barometric Pressure mm/Hg Oxygen Given Sodium (136-145) mmol/L Potassium (3.5-5.1) mmol/L Chloride (98-107) mmol/L Carbon Dioxide (21-32) mmol/L Anion Gap (3-11) BUN (7-18) mg/dl Creatinine (0.6-1.4) mg/dl Est Cr Clr Drug Dosing ml/min Est GFR ( Amer) Est GFR (Non-Af Amer) BUN/Creatinine Ratio (10-20) Glucose (70-99) mg/dl POC Glucose 98 (70-99) mg/dl Osmolality (280-300) mOsm/kg Lactate (0.4-2.0) mmol/L Calcium (8.5-10.1) mg/dl Phosphorus (2.5-4.9) mg/dl Magnesium (1.8-2.4) mg/dl Total Bilirubin (0.2-1) mg/dl AST (15-37) U/L ALT (12-78) U/L Alkaline Phosphatase (45-117) U/L Ammonia (11-32) umol/L Total Protein (6.4-8.2) gm/dl Albumin (3.4-5.0) gm/dl Globulin (2.5-4.0) gm/dl Albumin/Globulin Ratio (0.9-2) 25-OH Vitamin D Total (30-100) ng/ml TSH (0.300-4.500) uIu/ml Free T4 (0.8-1.6) ng/dl Total T3 (0.60-1.81) ng/ml PTH Intact (18.4-80.1) pg/ml PTH Related Protein Urine Color Urine Appearance (Clear) Urine pH (4.5-7.5) Ur Specific [place] (1.000-1.030) Urine Protein (Negative) Urine Glucose (UA) (Negative) Urine Ketones (Negative) Urine Blood (Negative) Urine Nitrite (Negative) Urine Bilirubin (Negative) Urine Urobilinogen (Negative) Ur Leukocyte Esterase (Negative) Urine WBC (Auto) (0-5) /hpf Urine RBC (Auto) (0-4) /hpf U Hyaline Cast (Auto) (0-5) /lpf U Epithel Cells (Auto) (0-5) /lpf Urine Bacteria (Auto) (Negative) Nasal Screen MRSA (PCR) Negative (Negative) Stool Occult Bld Scrn (Negative) Urine Opiates Screen (Neg) U Codeine Confrm GC/MS Ur Morphine (GC/MS) Ur Hydrocodone (GC/MS) Ur Norhydrocodone Ur Noroxycodone Urine Oxycodone (GC/MS) U Oxymorphone GC/MS Ur Methadone, Qual (Neg) Ur Hydromorphone (GC/MS) Urine Barbiturates (Neg) Ur Phencyclidine (PCP) (Neg) U Amphetamin/Meth Scrn (Neg) MDMA (Ecstasy) Screen (Neg) U Benzodiazepines Scrn (Neg) Ur Cocaine Metabolite (Neg) U Marijuana (THC) Screen (Neg) Drug Screen Comment Bld Cult Staph aureus PCR (Negative) Blood Culture MRSA PCR (Negative) 07/14/19 07/14/19 07/13/19 Range/Units 00:19 00:19 22:30 WBC (4.8-10.8) K/uL RBC (4.7-6.1) M/uL Hgb (14.0-18.0) g/dL Hct (42-52) % MCV (80-100) fL MCH (25-34) pg MCHC (32-36) g/dL RDW Std Deviation (36.4-46.3) fL RDW Coeff of Trista (11.5-14.5) % Plt Count (130-400) K/uL MPV (7.4-10.4) fL Immature Gran % (Auto) % Neut % (Auto) % Lymph % (Auto) % [place] % (Auto) % Eos % (Auto) % Baso % (Auto) % Immature Gran # (Auto) (0.00-0.02) K/uL Neut # (Auto) (1.4-6.5) K/uL Lymph # (Auto) (1.2-3.4) K/uL [place] # (Auto) (0.11-0.59) K/uL Eos # (Auto) (0-0.5) K/uL Baso # (Auto) (0-0.2) K/uL Macrocytosis PT (9.0-12.0) Seconds INR (0.9-1.1) ABG pH (7.35-7.45) ABG pCO2 (35-46) mmHg ABG pO2 (80-95) mmHg ABG HCO3 (19-24) mmol/L ABG O2 Saturation (90-95) % ABG Base Excess (-9-1.8) mEq/L Clint Test (Pos) Barometric Pressure mm/Hg Oxygen Given Sodium 136 (136-145) mmol/L Potassium (3.5-5.1) mmol/L Chloride 100 (98-107) mmol/L Carbon Dioxide 27 (21-32) mmol/L Anion Gap 9.0 (3-11) BUN 25 H (7-18) mg/dl Creatinine 0.98 D (0.6-1.4) mg/dl Est Cr Clr Drug Dosing 66.3 ml/min Est GFR ( Amer) 100.2 Est GFR (Non-Af Amer) 86.4 BUN/Creatinine Ratio 25.3 H (10-20) Glucose 101 H (70-99) mg/dl POC Glucose (70-99) mg/dl Osmolality (280-300) mOsm/kg Lactate 3.7 H* (0.4-2.0) mmol/L Calcium 11.0 H D (8.5-10.1) mg/dl Phosphorus (2.5-4.9) mg/dl Magnesium (1.8-2.4) mg/dl Total Bilirubin (0.2-1) mg/dl AST (15-37) U/L ALT (12-78) U/L Alkaline Phosphatase (45-117) U/L Ammonia (11-32) umol/L Total Protein (6.4-8.2) gm/dl Albumin (3.4-5.0) gm/dl Globulin (2.5-4.0) gm/dl Albumin/Globulin Ratio (0.9-2) 25-OH Vitamin D Total (30-100) ng/ml TSH (0.300-4.500) uIu/ml Free T4 (0.8-1.6) ng/dl Total T3 (0.60-1.81) ng/ml PTH Intact (18.4-80.1) pg/ml PTH Related Protein Urine Color Urine Appearance (Clear) Urine pH (4.5-7.5) Ur Specific [place] (1.000-1.030) Urine Protein (Negative) Urine Glucose (UA) (Negative) Urine Ketones (Negative) Urine Blood (Negative) Urine Nitrite (Negative) Urine Bilirubin (Negative) Urine Urobilinogen (Negative) Ur Leukocyte Esterase (Negative) Urine WBC (Auto) (0-5) /hpf Urine RBC (Auto) (0-4) /hpf U Hyaline Cast (Auto) (0-5) /lpf U Epithel Cells (Auto) (0-5) /lpf Urine Bacteria (Auto) (Negative) Nasal Screen MRSA (PCR) (Negative) Stool Occult Bld Scrn Negative (Negative) Urine Opiates Screen (Neg) U Codeine Confrm GC/MS Ur Morphine (GC/MS) Ur Hydrocodone (GC/MS) Ur Norhydrocodone Ur Noroxycodone Urine Oxycodone (GC/MS) U Oxymorphone GC/MS Ur Methadone, Qual (Neg) Ur Hydromorphone (GC/MS) Urine Barbiturates (Neg) Ur Phencyclidine (PCP) (Neg) U Amphetamin/Meth Scrn (Neg) MDMA (Ecstasy) Screen (Neg) U Benzodiazepines Scrn (Neg) Ur Cocaine Metabolite (Neg) U Marijuana (THC) Screen (Neg) Drug Screen Comment Bld Cult Staph aureus PCR (Negative) Blood Culture MRSA PCR (Negative) 07/13/19 07/13/19 07/13/19 Range/Units 22:16 20:50 20:50 WBC (4.8-10.8) K/uL RBC (4.7-6.1) M/uL Hgb (14.0-18.0) g/dL Hct (42-52) % MCV (80-100) fL MCH (25-34) pg MCHC (32-36) g/dL RDW Std Deviation (36.4-46.3) fL RDW Coeff of Trista (11.5-14.5) % Plt Count (130-400) K/uL MPV (7.4-10.4) fL Immature Gran % (Auto) % Neut % (Auto) % Lymph % (Auto) % [place] % (Auto) % Eos % (Auto) % Baso % (Auto) % Immature Gran # (Auto) (0.00-0.02) K/uL Neut # (Auto) (1.4-6.5) K/uL Lymph # (Auto) (1.2-3.4) K/uL [place] # (Auto) (0.11-0.59) K/uL Eos # (Auto) (0-0.5) K/uL Baso # (Auto) (0-0.2) K/uL Macrocytosis PT (9.0-12.0) Seconds INR (0.9-1.1) ABG pH (7.35-7.45) ABG pCO2 (35-46) mmHg ABG pO2 (80-95) mmHg ABG HCO3 (19-24) mmol/L ABG O2 Saturation (90-95) % ABG Base Excess (-9-1.8) mEq/L Clint Test (Pos) Barometric Pressure mm/Hg Oxygen Given Sodium (136-145) mmol/L Potassium (3.5-5.1) mmol/L Chloride (98-107) mmol/L Carbon Dioxide (21-32) mmol/L Anion Gap (3-11) BUN (7-18) mg/dl Creatinine (0.6-1.4) mg/dl Est Cr Clr Drug Dosing ml/min Est GFR ( Amer) Est GFR (Non-Af Amer) BUN/Creatinine Ratio (10-20) Glucose (70-99) mg/dl POC Glucose 103 H (70-99) mg/dl Osmolality (280-300) mOsm/kg Lactate (0.4-2.0) mmol/L Calcium (8.5-10.1) mg/dl Phosphorus (2.5-4.9) mg/dl Magnesium (1.8-2.4) mg/dl Total Bilirubin (0.2-1) mg/dl AST (15-37) U/L ALT (12-78) U/L Alkaline Phosphatase (45-117) U/L Ammonia (11-32) umol/L Total Protein (6.4-8.2) gm/dl Albumin (3.4-5.0) gm/dl Globulin (2.5-4.0) gm/dl Albumin/Globulin Ratio (0.9-2) 25-OH Vitamin D Total (30-100) ng/ml TSH (0.300-4.500) uIu/ml Free T4 (0.8-1.6) ng/dl Total T3 (0.60-1.81) ng/ml PTH Intact (18.4-80.1) pg/ml PTH Related Protein Urine Color Dark Yellow Urine Appearance Clear (Clear) Urine pH 5.0 (4.5-7.5) Ur Specific [place] > 1.045 H (1.000-1.030) Urine Protein Trace H (Negative) Urine Glucose (UA) Negative (Negative) Urine Ketones Trace H (Negative) Urine Blood Negative (Negative) Urine Nitrite Negative (Negative) Urine Bilirubin Negative (Negative) Urine Urobilinogen Negative (Negative) Ur Leukocyte Esterase Negative (Negative) Urine WBC (Auto) 1-5 (0-5) /hpf Urine RBC (Auto) 5-10 H (0-4) /hpf U Hyaline Cast (Auto) 10-30 H (0-5) /lpf U Epithel Cells (Auto) 5-10 H (0-5) /lpf Urine Bacteria (Auto) Negative (Negative) Nasal Screen MRSA (PCR) (Negative) Stool Occult Bld Scrn (Negative) Urine Opiates Screen (Neg) U Codeine Confrm GC/MS Pending Ur Morphine (GC/MS) Pending Ur Hydrocodone (GC/MS) Pending Ur Norhydrocodone Pending Ur Noroxycodone Pending Urine Oxycodone (GC/MS) Pending U Oxymorphone GC/MS Pending Ur Methadone, Qual (Neg) Ur Hydromorphone (GC/MS) Pending Urine Barbiturates (Neg) Ur Phencyclidine (PCP) (Neg) U Amphetamin/Meth Scrn (Neg) MDMA (Ecstasy) Screen (Neg) U Benzodiazepines Scrn (Neg) Ur Cocaine Metabolite (Neg) U Marijuana (THC) Screen (Neg) Drug Screen Comment Pending Bld Cult Staph aureus PCR (Negative) Blood Culture MRSA PCR (Negative) 07/13/19 07/13/19 07/13/19 Range/Units 20:50 20:45 20:45 WBC (4.8-10.8) K/uL RBC (4.7-6.1) M/uL Hgb (14.0-18.0) g/dL Hct (42-52) % MCV (80-100) fL MCH (25-34) pg MCHC (32-36) g/dL RDW Std Deviation (36.4-46.3) fL RDW Coeff of Trista (11.5-14.5) % Plt Count (130-400) K/uL MPV (7.4-10.4) fL Immature Gran % (Auto) % Neut % (Auto) % Lymph % (Auto) % [place] % (Auto) % Eos % (Auto) % Baso % (Auto) % Immature Gran # (Auto) (0.00-0.02) K/uL Neut # (Auto) (1.4-6.5) K/uL Lymph # (Auto) (1.2-3.4) K/uL [place] # (Auto) (0.11-0.59) K/uL Eos # (Auto) (0-0.5) K/uL Baso # (Auto) (0-0.2) K/uL Macrocytosis PT (9.0-12.0) Seconds INR (0.9-1.1) ABG pH (7.35-7.45) ABG pCO2 (35-46) mmHg ABG pO2 (80-95) mmHg ABG HCO3 (19-24) mmol/L ABG O2 Saturation (90-95) % ABG Base Excess (-9-1.8) mEq/L Clint Test (Pos) Barometric Pressure mm/Hg Oxygen Given Sodium (136-145) mmol/L Potassium (3.5-5.1) mmol/L Chloride (98-107) mmol/L Carbon Dioxide (21-32) mmol/L Anion Gap (3-11) BUN (7-18) mg/dl Creatinine (0.6-1.4) mg/dl Est Cr Clr Drug Dosing ml/min Est GFR ( Amer) Est GFR (Non-Af Amer) BUN/Creatinine Ratio (10-20) Glucose (70-99) mg/dl POC Glucose (70-99) mg/dl Osmolality (280-300) mOsm/kg Lactate 2.3 H* (0.4-2.0) mmol/L Calcium (8.5-10.1) mg/dl Phosphorus (2.5-4.9) mg/dl Magnesium (1.8-2.4) mg/dl Total Bilirubin (0.2-1) mg/dl AST (15-37) U/L ALT (12-78) U/L Alkaline Phosphatase (45-117) U/L Ammonia 16.9 (11-32) umol/L Total Protein (6.4-8.2) gm/dl Albumin (3.4-5.0) gm/dl Globulin (2.5-4.0) gm/dl Albumin/Globulin Ratio (0.9-2) 25-OH Vitamin D Total (30-100) ng/ml TSH (0.300-4.500) uIu/ml Free T4 (0.8-1.6) ng/dl Total T3 (0.60-1.81) ng/ml PTH Intact (18.4-80.1) pg/ml PTH Related Protein Urine Color Urine Appearance (Clear) Urine pH (4.5-7.5) Ur Specific [place] (1.000-1.030) Urine Protein (Negative) Urine Glucose (UA) (Negative) Urine Ketones (Negative) Urine Blood (Negative) Urine Nitrite (Negative) Urine Bilirubin (Negative) Urine Urobilinogen (Negative) Ur Leukocyte Esterase (Negative) Urine WBC (Auto) (0-5) /hpf Urine RBC (Auto) (0-4) /hpf U Hyaline Cast (Auto) (0-5) /lpf U Epithel Cells (Auto) (0-5) /lpf Urine Bacteria (Auto) (Negative) Nasal Screen MRSA (PCR) (Negative) Stool Occult Bld Scrn (Negative) Urine Opiates Screen Pos H (Neg) U Codeine Confrm GC/MS Ur Morphine (GC/MS) Ur Hydrocodone (GC/MS) Ur Norhydrocodone Ur Noroxycodone Urine Oxycodone (GC/MS) U Oxymorphone GC/MS Ur Methadone, Qual Neg (Neg) Ur Hydromorphone (GC/MS) Urine Barbiturates Neg (Neg) Ur Phencyclidine (PCP) Neg (Neg) U Amphetamin/Meth Scrn Neg (Neg) MDMA (Ecstasy) Screen Neg (Neg) U Benzodiazepines Scrn Neg (Neg) Ur Cocaine Metabolite Neg (Neg) U Marijuana (THC) Screen Neg (Neg) Drug Screen Comment Bld Cult Staph aureus PCR (Negative) Blood Culture MRSA PCR (Negative) 07/13/19 07/13/19 07/13/19 Range/Units 20:45 20:45 18:08 WBC (4.8-10.8) K/uL RBC (4.7-6.1) M/uL Hgb (14.0-18.0) g/dL Hct (42-52) % MCV (80-100) fL MCH (25-34) pg MCHC (32-36) g/dL RDW Std Deviation (36.4-46.3) fL RDW Coeff of Trista (11.5-14.5) % Plt Count (130-400) K/uL MPV (7.4-10.4) fL Immature Gran % (Auto) % Neut % (Auto) % Lymph % (Auto) % Mccracken % (Auto) % Eos % (Auto) % Baso % (Auto) % Immature Gran # (Auto) (0.00-0.02) K/uL Neut # (Auto) (1.4-6.5) K/uL Lymph # (Auto) (1.2-3.4) K/uL [place]racken # (Auto) (0.11-0.59) K/uL Eos # (Auto) (0-0.5) K/uL Baso # (Auto) (0-0.2) K/uL Macrocytosis PT (9.0-12.0) Seconds INR (0.9-1.1) ABG pH (7.35-7.45) ABG pCO2 (35-46) mmHg ABG pO2 (80-95) mmHg ABG HCO3 (19-24) mmol/L ABG O2 Saturation (90-95) % ABG Base Excess (-9-1.8) mEq/L Clint Test (Pos) Barometric Pressure mm/Hg Oxygen Given Sodium 136 (136-145) mmol/L Potassium 4.0 (3.5-5.1) mmol/L Chloride 99 (98-107) mmol/L Carbon Dioxide 19 L (21-32) mmol/L Anion Gap 18.0 H (3-11) BUN 18 (7-18) mg/dl Creatinine 0.56 L D (0.6-1.4) mg/dl Est Cr Clr Drug Dosing 105.2 ml/min Est GFR ( Amer) 135.0 Est GFR (Non-Af Amer) 116.4 BUN/Creatinine Ratio 33.1 H (10-20) Glucose 62 L (70-99) mg/dl POC Glucose (70-99) mg/dl Osmolality (280-300) mOsm/kg Lactate (0.4-2.0) mmol/L Calcium 6.7 L D (8.5-10.1) mg/dl Phosphorus (2.5-4.9) mg/dl Magnesium (1.8-2.4) mg/dl Total Bilirubin (0.2-1) mg/dl AST (15-37) U/L ALT (12-78) U/L Alkaline Phosphatase (45-117) U/L Ammonia (11-32) umol/L Total Protein (6.4-8.2) gm/dl Albumin (3.4-5.0) gm/dl Globulin (2.5-4.0) gm/dl Albumin/Globulin Ratio (0.9-2) 25-OH Vitamin D Total (30-100) ng/ml TSH (0.300-4.500) uIu/ml Free T4 (0.8-1.6) ng/dl Total T3 (0.60-1.81) ng/ml PTH Intact 8.6 L (18.4-80.1) pg/ml PTH Related Protein Urine Color Urine Appearance (Clear) Urine pH (4.5-7.5) Ur Specific [place] (1.000-1.030) Urine Protein (Negative) Urine Glucose (UA) (Negative) Urine Ketones (Negative) Urine Blood (Negative) Urine Nitrite (Negative) Urine Bilirubin (Negative) Urine Urobilinogen (Negative) Ur Leukocyte Esterase (Negative) Urine WBC (Auto) (0-5) /hpf Urine RBC (Auto) (0-4) /hpf U Hyaline Cast (Auto) (0-5) /lpf U Epithel Cells (Auto) (0-5) /lpf Urine Bacteria (Auto) (Negative) Nasal Screen MRSA (PCR) (Negative) Stool Occult Bld Scrn (Negative) Urine Opiates Screen (Neg) U Codeine Confrm GC/MS Ur Morphine (GC/MS) Ur Hydrocodone (GC/MS) Ur Norhydrocodone Ur Noroxycodone Urine Oxycodone (GC/MS) U Oxymorphone GC/MS Ur Methadone, Qual (Neg) Ur Hydromorphone (GC/MS) Urine Barbiturates (Neg) Ur Phencyclidine (PCP) (Neg) U Amphetamin/Meth Scrn (Neg) MDMA (Ecstasy) Screen (Neg) U Benzodiazepines Scrn (Neg) Ur Cocaine Metabolite (Neg) U Marijuana (THC) Screen (Neg) Drug Screen Comment Bld Cult Staph aureus PCR Negative (Negative) Blood Culture MRSA PCR Negative (Negative) 07/13/19 07/13/19 07/13/19 Range/Units 18:08 17:35 17:35 WBC (4.8-10.8) K/uL RBC (4.7-6.1) M/uL Hgb (14.0-18.0) g/dL Hct (42-52) % MCV (80-100) fL MCH (25-34) pg MCHC (32-36) g/dL RDW Std Deviation (36.4-46.3) fL RDW Coeff of Trista (11.5-14.5) % Plt Count (130-400) K/uL MPV (7.4-10.4) fL Immature Gran % (Auto) % Neut % (Auto) % Lymph % (Auto) % [place]rack[place] % (Auto) % Eos % (Auto) % Baso % (Auto) % Immature Gran # (Auto) (0.00-0.02) K/uL Neut # (Auto) (1.4-6.5) K/uL Lymph # (Auto) (1.2-3.4) K/uL [place]rack[place] # (Auto) (0.11-0.59) K/uL Eos # (Auto) (0-0.5) K/uL Baso # (Auto) (0-0.2) K/uL Macrocytosis PT (9.0-12.0) Seconds INR (0.9-1.1) ABG pH (7.35-7.45) ABG pCO2 (35-46) mmHg ABG pO2 (80-95) mmHg ABG HCO3 (19-24) mmol/L ABG O2 Saturation (90-95) % ABG Base Excess (-9-1.8) mEq/L Clint Test (Pos) Barometric Pressure mm/Hg Oxygen Given Sodium (136-145) mmol/L Potassium (3.5-5.1) mmol/L Chloride (98-107) mmol/L Carbon Dioxide (21-32) mmol/L Anion Gap (3-11) BUN (7-18) mg/dl Creatinine (0.6-1.4) mg/dl Est Cr Clr Drug Dosing ml/min Est GFR ( Amer) Est GFR (Non-Af Amer) BUN/Creatinine Ratio (10-20) Glucose (70-99) mg/dl POC Glucose (70-99) mg/dl Osmolality 307 H (280-300) mOsm/kg Lactate (0.4-2.0) mmol/L Calcium (8.5-10.1) mg/dl Phosphorus 3.7 (2.5-4.9) mg/dl Magnesium 1.8 (1.8-2.4) mg/dl Total Bilirubin (0.2-1) mg/dl AST (15-37) U/L ALT (12-78) U/L Alkaline Phosphatase (45-117) U/L Ammonia (11-32) umol/L Total Protein (6.4-8.2) gm/dl Albumin (3.4-5.0) gm/dl Globulin (2.5-4.0) gm/dl Albumin/Globulin Ratio (0.9-2) 25-OH Vitamin D Total (30-100) ng/ml TSH 9.580 H (0.300-4.500) uIu/ml Free T4 (0.8-1.6) ng/dl Total T3 (0.60-1.81) ng/ml PTH Intact (18.4-80.1) pg/ml PTH Related Protein Urine Color Urine Appearance (Clear) Urine pH (4.5-7.5) Ur Specific [place] (1.000-1.030) Urine Protein (Negative) Urine Glucose (UA) (Negative) Urine Ketones (Negative) Urine Blood (Negative) Urine Nitrite (Negative) Urine Bilirubin (Negative) Urine Urobilinogen (Negative) Ur Leukocyte Esterase (Negative) Urine WBC (Auto) (0-5) /hpf Urine RBC (Auto) (0-4) /hpf U Hyaline Cast (Auto) (0-5) /lpf U Epithel Cells (Auto) (0-5) /lpf Urine Bacteria (Auto) (Negative) Nasal Screen MRSA (PCR) (Negative) Stool Occult Bld Scrn (Negative) Urine Opiates Screen (Neg) U Codeine Confrm GC/MS Ur Morphine (GC/MS) Ur Hydrocodone (GC/MS) Ur Norhydrocodone Ur Noroxycodone Urine Oxycodone (GC/MS) U Oxymorphone GC/MS Ur Methadone, Qual (Neg) Ur Hydromorphone (GC/MS) Urine Barbiturates (Neg) Ur Phencyclidine (PCP) (Neg) U Amphetamin/Meth Scrn (Neg) MDMA (Ecstasy) Screen (Neg) U Benzodiazepines Scrn (Neg) Ur Cocaine Metabolite (Neg) U Marijuana (THC) Screen (Neg) Drug Screen Comment Bld Cult Staph aureus PCR (Negative) Blood Culture MRSA PCR (Negative) 07/13/19 Range/Units 17:35 WBC 10.05 (4.8-10.8) K/uL RBC 4.47 L (4.7-6.1) M/uL Hgb 15.9 (14.0-18.0) g/dL Hct 45.5 (42-52) % MCV 101.8 H (80-100) fL MCH 35.6 H (25-34) pg MCHC 34.9 (32-36) g/dL RDW Std Deviation 55.7 H (36.4-46.3) fL RDW Coeff of Trista 15.2 H (11.5-14.5) % Plt Count 119 L (130-400) K/uL MPV 12.0 H (7.4-10.4) fL Immature Gran % (Auto) 0.4 % Neut % (Auto) 67.5 % Lymph % (Auto) 22.0 % M[place]rack[place] % (Auto) 8.6 % Eos % (Auto) 0.9 % Baso % (Auto) 0.6 % Immature Gran # (Auto) 0.04 H (0.00-0.02) K/uL Neut # (Auto) 6.79 H (1.4-6.5) K/uL Lymph # (Auto) 2.21 (1.2-3.4) K/uL [place]rack[place] # (Auto) 0.86 H (0.11-0.59) K/uL Eos # (Auto) 0.09 (0-0.5) K/uL Baso # (Auto) 0.06 (0-0.2) K/uL Macrocytosis Present PT (9.0-12.0) Seconds INR (0.9-1.1) ABG pH (7.35-7.45) ABG pCO2 (35-46) mmHg ABG pO2 (80-95) mmHg ABG HCO3 (19-24) mmol/L ABG O2 Saturation (90-95) % ABG Base Excess (-9-1.8) mEq/L Clint Test (Pos) Barometric Pressure mm/Hg Oxygen Given Sodium (136-145) mmol/L Potassium (3.5-5.1) mmol/L Chloride (98-107) mmol/L Carbon Dioxide (21-32) mmol/L Anion Gap (3-11) BUN (7-18) mg/dl Creatinine (0.6-1.4) mg/dl Est Cr Clr Drug Dosing ml/min Est GFR ( Amer) Est GFR (Non-Af Amer) BUN/Creatinine Ratio (10-20) Glucose (70-99) mg/dl POC Glucose (70-99) mg/dl Osmolality (280-300) mOsm/kg Lactate (0.4-2.0) mmol/L Calcium (8.5-10.1) mg/dl Phosphorus (2.5-4.9) mg/dl Magnesium (1.8-2.4) mg/dl Total Bilirubin (0.2-1) mg/dl AST (15-37) U/L ALT (12-78) U/L Alkaline Phosphatase (45-117) U/L Ammonia (11-32) umol/L Total Protein (6.4-8.2) gm/dl Albumin (3.4-5.0) gm/dl Globulin (2.5-4.0) gm/dl Albumin/Globulin Ratio (0.9-2) 25-OH Vitamin D Total (30-100) ng/ml TSH (0.300-4.500) uIu/ml Free T4 (0.8-1.6) ng/dl Total T3 (0.60-1.81) ng/ml PTH Intact (18.4-80.1) pg/ml PTH Related Protein Urine Color Urine Appearance (Clear) Urine pH (4.5-7.5) Ur Specific [place] (1.000-1.030) Urine Protein (Negative) Urine Glucose (UA) (Negative) Urine Ketones (Negative) Urine Blood (Negative) Urine Nitrite (Negative) Urine Bilirubin (Negative) Urine Urobilinogen (Negative) Ur Leukocyte Esterase (Negative) Urine WBC (Auto) (0-5) /hpf Urine RBC (Auto) (0-4) /hpf U Hyaline Cast (Auto) (0-5) /lpf U Epithel Cells (Auto) (0-5) /lpf Urine Bacteria (Auto) (Negative) Nasal Screen MRSA (PCR) (Negative) Stool Occult Bld Scrn (Negative) Urine Opiates Screen (Neg) U Codeine Confrm GC/MS Ur Morphine (GC/MS) Ur Hydrocodone (GC/MS) Ur Norhydrocodone Ur Noroxycodone Urine Oxycodone (GC/MS) U Oxymorphone GC/MS Ur Methadone, Qual (Neg) Ur Hydromorphone (GC/MS) Urine Barbiturates (Neg) Ur Phencyclidine (PCP) (Neg) U Amphetamin/Meth Scrn (Neg) MDMA (Ecstasy) Screen (Neg) U Benzodiazepines Scrn (Neg) Ur Cocaine Metabolite (Neg) U Marijuana (THC) Screen (Neg) Drug Screen Comment Bld Cult Staph aureus PCR (Negative) Blood Culture MRSA PCR (Negative)
[2019-07-14 20:25] LABS: Hematocrit (blood only) 38.9 % (42-52); Hemoglobin 12.8 g/dL (14.0-18.0); Mean Corpuscular Hgb Conc 32.9 g/dL (32-36); Mean Corpuscular Volume 103.2 fL (80-100); Nucleated RBC # (auto) 0.06 K/uL (0-0); Nucleated RBC % (auto) 0.6 %; RDW Coefficient of Variation 15.4 % (11.5-14.5); RDW Standard Deviation 57.5 fL (36.4-46.3); Red Blood Count 3.77 M/uL (4.7-6.1); White Blood Count 9.49 K/uL (4.8-10.8)
[2019-07-14] MEDS ORDERED: ALBUMIN 25% 50 ML with FUROSEMIDE 20 MG IV ONE (20:30)
[2019-07-14 20:42] LABS: BUN Creatinine Ratio 19.7 (10-20); Calcium 11.3 mg/dl (8.5-10.1); Creatinine Clr Calc Pharmacy 66.8 ml/min; Est GFR (African American) 97.8; Est GFR (Non-African American) 84.4; Magnesium 1.9 mg/dl (1.8-2.4)
[2019-07-14 20:49] LABS: Mean Platelet Volume 11.7 fL (7.4-10.4); Platelet Count 95 K/uL (130-400)
[2019-07-14 20:50] LABS: Platelet Estimate Decreased (Normal)
[2019-07-14] MEDS ORDERED: CALCITONIN SALMON 100 UNITS in SYRINGE 0 ML SQ SCH (21:00)
[2019-07-14] MEDS ORDERED: CALCITONIN SALMON 400 UNITS/2 ML SQ SCH (21:00)
[2019-07-14 23:23] VITALS: O2SAT 90
[2019-07-15] MEDS ORDERED: ALBUMIN 25% 50 ML IV ONE (00:34)
[2019-07-15 00:53] VITALS: BP 95/64; PULSE 132; TEMP 97.7
[2019-07-15] MEDS ORDERED: LORazepam 0.25 MG/0.5 ML VIAL IV STA (00:59)
[2019-07-15] MEDS ORDERED: KETOROLAC TROMETHAMINE 15 MG/ML VIAL IV STA (01:02)
--- NOTE | 2019-07-15 01:18 | Communication Note ---
Date of Service: July 15, 2019 Made aware by RN of persistent patient discomfort, SBP 90s, persistent tachycardia/tachypnea. Progressive lactic acidosis in the 4s. AP Severe sepsis Gram-positive bacteremia Ongoing Vancomycin Zosyn Rx Additional crystalloid IVF administration precluded by fluid overload yesterday a.m. Patient daughter updated of developments over the phone and informed of option to move patient to ICU to facilitate pressor therapy for sepsis. She later requested for de-escalation of management to comfort measures after discussing father's care with ICU provider over the phone. Will relay to AM provider.
[2019-07-15] MEDS ORDERED: ACETAMINOPHEN 1,000 MG/100 ML VIAL IV PRN (01:27)
[2019-07-15] MEDS ORDERED: ATROPINE SULFATE 1% OP SOLN 2 ML BTL SL PRN (01:30)
[2019-07-15] MEDS ORDERED: LORazepam 0.5 MG/1 ML VIAL IV PRN (01:30)
[2019-07-15] MEDS: MoRPHine SULFATE 4 MG/ML 1 ML CARP\\VIAL IV PRN ×8 (02:19→22:41)
[2019-07-15] MEDS: ATROPINE SULFATE 1% OP SOLN 2 ML BTL SL PRN ×2 (02:19→03:58)
--- NOTE | 2019-07-15 02:20 | Communication Note ---
Date of Service: July 15, 2019 I was contacted by Dr. Mirza in regards to Mr. Frank. He explained the patient's clinical course and was considering transfer to ICU for vasopressor support as patient's clinical status was deteriorating. However, with the patient's DNR/DNI CODE STATUS I spoke with the daughter prior to transfer. Patient's clinical status was discussed and I explained that the patient was appearing to deteriorate and was becoming hypotensive and his lactic acid was increasing. I explained the use of vasopressors and discussed the need for central venous catheter and arterial line insertion if we were to proceed with vasopressor support. Upon further discussion, patient's daughter who is now POA as the patient is currently confused, revealed that her father had had prior discussion with her in which he stated that he would not want aggressive measures in the event he were to be hospitalized. In conclusion to our discussion, the daughter stated that the family would like to transition the patient to comfort care status. The family had previously been allowed to visit the patient yesterday. The patient's daughter expressed understanding of lopez sition to comfort care and had no further questions. Dr. Mirza was then contacted and updated with the conclusion to my discussion with patient's daughter. At this point there is no need for transfer to ICU as family is not interested in pursuing aggressive measures. Feel free to contact us if further assistance is needed. Coding Level of Care Code None
[2019-07-15] MEDS: LORazepam 1 MG/2 ML VIAL IV PRN ×2 (09:23→12:18)
--- NOTE | 2019-07-15 09:28 | Hospitalist Progress Note ---
Date of Service July 15, 2019 Assessment & Plan (1) Encephalopathy: Most likely secondary to advanced metastatic disease, and hypercalcemia due to malignancy Less likely due to infection/sepsis Initially believed to be possibly d/t sepsis, however no clear source of infection found -Sources of infection were believed to be possible aspiration pna, however CT chest does not show any airspace consolidation typical for pneumonia or pleural effusion, however CT chest also showed moderate emphysematous changes and most importantly multiple concerning nodules, including a spiculated nodule -Other source of possible infection was thought to be possibly paraspinous abscess, this was discussed with radiology and Dr. Mirza, paraspinous mass is not likely abscess and most likely metastasis -Cultures obtained on admission, and initially pt was started on Unasyn for possible aspiration pneumonitis, then Abx coverage broadened by admitting physician/chief engineer waterworks to vancomycin and Zosyn as patient's lactate was still elevated despite IVF Lactic acid persistently elevated, despite aggressive fluid resuscitation and broad-spectrum antibiotic -1 blood culture was positive for gram-positive cocci in clusters, however second blood culture negative, and repeat blood cultures are negative to date, therefore questionable contamination Pt continued to be encephalopathic,became hypotensive, despite aggressive fluid resuscitation, tachycardic, tachypneic. ICU and family contacted. After thorough discussion, family/POA decided to proceed with DNR/DNI CODE STATUS (per patient's written wishes), and not to proceed with further aggressive treatments. Widespread metastatic disease (likely lung ca primary) - Pt has known hx of lung nodules (at least since 09/2017) per EMR - Followed w/ oncologist Dr. Watters - He was then supposed to follow up w/ oncologist Dr. Murray, appointments were rescheduled, next one was scheduled for August 2019 - contacted Dr. Murray to see if pt had known diagnosed primary ca - per Dr. Murray, pt did not have a primary ca diagnosed - on current imaging there are lung nodules, metastatic lesions in thoracic, and lumbosacral spine, left shoulder and liver Hypercalcemia - secondary to malignancy - encephalopathy possibly d/t hypercalcemia - pt received IVF and Nephrology was consulted -Calcitonin to help bring calcium down, however clearly this will not change the underlying issue, widespread metastatic disease Severe protein calorie malnutrition/cachexia Patient's BMI is about 16, with visible temporal wasting, cachexia Most likely secondary to advanced malignant disease Currently patient is unresponsive, dietitian consult discontinued Hx COPD as per records alcoholic cirrhosis, no overt decompensation chronic thrombocytopenia secondary to above Hx right renal mass as per records [place] to be benign as per outpatient [facility] [facility] note from July 2017. No renal mass on CT imaging on this admission Elevated TSH, possible hypothyroidism ongoing tobacco/alcohol abuse DVT prophylaxis - stopped now given comfort care status CODE STATUS : DNR/DNI/ Comfort care as per pt's daughter, Ms. Honey Frank, pt's POA - code status discussed in detail over the phone (07/14/2019) Met Honey Krueger today (07/15/2019) at the bedside. She is glad she is following her father's wishes. And she is appreciative that she can visit him in the hospital. Plan to meet her again tomorrow with palliative medicine, and discuss further plan. At this moment she does not feel she could take care of him at home with hospice, I confirmed that at this moment patient is not stable for transfer. Pt's POA, daughter Honey Krueger can be contacted thru phone numbers / . Alternative contact is patient's ex-, . Honey Frank, contact . Admission and Anticipated Discharge Date Admission Date: July 13, 2019 Subjective Last night, 1 of the blood cultures positive for gram-positive cocci in clu sters. Notified the chief engineer waterworks, and chief engineer waterworks then spoke with family regarding further care. Patient has been treated with IV broad-spectrum antibiotics since his admission, his CODE STATUS was addressed earlier yesterday, and per family patient is DNR/DNI. However knowing that possibly cause of his decompensation is infection, rediscussed this with family, as for possibility of peripheral pre ssors/other treatment options. Clipping Marker discussed this with patient's daughter, also consulted ICU and ICU staff discussed further possible treatment with daughter and CODE STATUS. Patient's daughter, who is the POA, wishes comfort care measures only, stopping IV antibiotics and other treatments. She does not wish to continue with any aggressive treatments such as pressors etc. All the medications were stopped overnight, and only comfort measures medications were started for the patient. Patient is currently lying in bed, in no acute distress. Pt is not responsive to verbal or tactile stimuli. Palliative medicine was consulted, plan to see the patient on Tuesday, (tomorrow). Met with patient's daughter Honey Krueger at the bedside in the evening, she is glad she is able to visit her father in the hospital during his last days. She states that she would not want to take patient home with hospice, as she is not sure if she would be able to take care of him in this state. I agreed with her and confirmed that at this time I think it is rausch to keep the patient in the hospital and re-discuss this tomorrow with palliative medicine. Honey Krueger glad she was able to find patient's legal paperwork, where patient was clear about his DNR/DNI status and she is pleased to follow his wishes. She tells me that there are things that he was keeping away from her, likely trying to protect her. As his previous due to cancer, on home hospice, and he was the primary caregiver. Honey Krueger says that patient would not want her or her brother to be in similar position. Review of Systems Review of Systems: Patient not answering questions, not responding Physical Exam Physical Exam: GENERAL: Cachectic, chronically ill appearing male lying in bed in no acute distress HEENT: NC/AT, temporal wasting, thin neck CHEST : mild rhonchi otherwise clear to auscultation ant., no wheezing noted HEART : Tachycardic , no murmurs noted ABDOMEN: thin, +bowel sounds, some distention, seems nontender (diff. to assess d/t cogn. status) EXTREMITIES : No LE swelling SKIN: Normal color, warm NEUROLOGIC: not responding much to verbal or tactile stimuli, occasionally opens his eyes Results & Data Results & Data ([facility]) Vital Signs (Past 12 Hours) Vital Signs Temp Pulse Pulse Resp BP Pulse Ox 07/15/19 00:52 36.5 C 132 H 28 H 95/64 L 90 07/14/19 23:15 130 H 24 90 07/14/19 23:00 36.6 C 132 H 22 97/61 L 88 L Laboratory Results 07/14/19 07/14/19 07/14/19 Range/Units 22:20 20:16 20:16 WBC (4.8-10.8) K/uL RBC (4.7-6.1) M/uL Hgb (14.0-18.0) g/dL Hct (42-52) % MCV (80-100) fL MCH (25-34) pg MCHC (32-36) g/dL RDW Std Deviation (36.4-46.3) fL RDW Coeff of Trista (11.5-14.5) % Plt Count (130-400) K/uL MPV (7.4-10.4) fL Absolute Nucleated RBC (0-0) K/uL Nucleated RBC % (auto) % Platelet Estimate (Normal) ABG pH (7.35-7.45) ABG pCO2 (35-46) mmHg ABG pO2 (80-95) mmHg ABG HCO3 (19-24) mmol/L ABG O2 Saturation (90-95) % ABG Base Excess (-9-1.8) mEq/L Clint Test (Pos) Barometric Pressure mm/Hg Oxygen Given Sodium 137 (136-145) mmol/L Potassium 4.0 (3.5-5.1) mmol/L Chloride 105 (98-107) mmol/L Carbon Dioxide 26 (21-32) mmol/L Anion Gap 7.0 (3-11) BUN 20 H (7-18) mg/dl Creatinine 1.00 (0.6-1.4) mg/dl Est Cr Clr Drug Dosing 66.8 ml/min Est GFR ( Amer) 97.8 Est GFR (Non-Af Amer) 84.4 BUN/Creatinine Ratio 19.7 (10-20) Glucose 84 (70-99) mg/dl Lactate 4.2 H* 4.1 H* (0.4-2.0) mmol/L Calcium 11.3 H (8.5-10.1) mg/dl Magnesium 1.9 (1.8-2.4) mg/dl Bld Cult Staph aureus PCR (Negative) Blood Culture MRSA PCR (Negative) 07/14/19 07/14/19 07/14/19 Range/Units 20:16 09:59 08:55 WBC 9.49 (4.8-10.8) K/uL RBC 3.77 L (4.7-6.1) M/uL Hgb 12.8 L (14.0-18.0) g/dL Hct 38.9 L (42-52) % MCV 103.2 H (80-100) fL MCH 34.0 (25-34) pg MCHC 32.9 (32-36) g/dL RDW Std Deviation 57.5 H (36.4-46.3) fL RDW Coeff of Trista 15.4 H (11.5-14.5) % Plt Count 95 L (130-400) K/uL MPV 11.7 H (7.4-10.4) fL Absolute Nucleated RBC 0.06 H (0-0) K/uL Nucleated RBC % (auto) 0.6 % Platelet Estimate Decreased L (Normal) ABG pH 7.47 H (7.35-7.45) ABG pCO2 34 L (35-46) mmHg ABG pO2 66 L (80-95) mmHg ABG HCO3 24 (19-24) mmol/L ABG O2 Saturation 92.0 (90-95) % ABG Base Excess 0.6 (-9-1.8) mEq/L Clint Test Pos (Pos) Barometric Pressure 731.0 mm/Hg Oxygen Given 2L Sodium (136-145) mmol/L Potassium (3.5-5.1) mmol/L Chloride (98-107) mmol/L Carbon Dioxide (21-32) mmol/L Anion Gap (3-11) BUN (7-18) mg/dl Creatinine (0.6-1.4) mg/dl Est Cr Clr Drug Dosing ml/min Est GFR ( Amer) Est GFR (Non-Af Amer) BUN/Creatinine Ratio (10-20) Glucose (70-99) mg/dl Lactate 3.2 H* (0.4-2.0) mmol/L Calcium (8.5-10.1) mg/dl Magnesium (1.8-2.4) mg/dl Bld Cult Staph aureus PCR (Negative) Blood Culture MRSA PCR (Negative) 07/13/19 Range/Units 18:08 WBC (4.8-10.8) K/uL RBC (4.7-6.1) M/uL Hgb (14.0-18.0) g/dL Hct (42-52) % MCV (80-100) fL MCH (25-34) pg MCHC (32-36) g/dL RDW Std Deviation (36.4-46.3) fL RDW Coeff of Trista (11.5-14.5) % Plt Count (130-400) K/uL MPV (7.4-10.4) fL Absolute Nucleated RBC (0-0) K/uL Nucleated RBC % (auto) % Platelet Estimate (Normal) ABG pH (7.35-7.45) ABG pCO2 (35-46) mmHg ABG pO2 (80-95) mmHg ABG HCO3 (19-24) mmol/L ABG O2 Saturation (90-95) % ABG Base Excess (-9-1.8) mEq/L Clint Test (Pos) Barometric Pressure mm/Hg Oxygen Given Sodium (136-145) mmol/L Potassium (3.5-5.1) mmol/L Chloride (98-107) mmol/L Carbon Dioxide (21-32) mmol/L Anion Gap (3-11) BUN (7-18) mg/dl Creatinine (0.6-1.4) mg/dl Est Cr Clr Drug Dosing ml/min Est GFR ( Amer) Est GFR (Non-Af Amer) BUN/Creatinine Ratio (10-20) Glucose (70-99) mg/dl Lactate (0.4-2.0) mmol/L Calcium (8.5-10.1) mg/dl Magnesium (1.8-2.4) mg/dl Bld Cult Staph aureus PCR Negative (Negative) Blood Culture MRSA PCR Negative (Negative) Medications Administered Current Inpatient Medications Atropine Sulfate (Atropine Sulfate 1% Oph Soln) 4 drops SL Q1H PRN PRN Reason: Secretions or Pulm Congestion Stop: 08/14/19 01:29 Last Admin: 07/15/19 03:58 Dose: 4 drops Documented by: Lorazepam (Ativan) 1 mg in 2 mls @ 0.5 mls/min IV Q15M PRN PRN Reason: Anxiety/Agitation Stop: 08/14/19 01:29 Last Admin: 07/15/19 09:23 Dose: 0.5 mls/min Documented by: Miscellaneous (Remove Lidoderm Patch) 1 ea N/A DAILY ANN MARIE Stop: 08/13/19 11:29 Last Admin: 07/15/19 07:13 Dose: Not Given Documented by: Morphine Sulfate (Morphine Sulfate) 4 mg IV Q15M PRN PRN Reason: Pain Stop: 07/29/19 01:29 Last Admin: 07/15/19 07:59 Dose: 4 mg Documented by:
[2019-07-15] MEDS ORDERED: VANCOMYCIN TROUGH ONE (11:30)
[2019-07-15] MEDS: MoRPHine SULFATE 5 MG/0.25 ML UDP PO PRN ×2 (13:41→17:06)
[2019-07-15 18:30] LABS: Codeine Urine NEGATIVE ng/mL (<50); Hydrocodone Urine 346 ng/mL (<50); Hydromor Urine 208 ng/mL (<50); Morphine Urine NEGATIVE ng/mL (<50); Norhydrocodone Conf Ur 423 ng/mL (<50); Noroxycodone Urine NEGATIVE ng/mL (<50); Oxycodone Urine NEGATIVE ng/mL (<50); Oxymorph Urine NEGATIVE ng/mL (<50)
[2019-07-15] MEDS ORDERED: GABAPENTIN 400 MG CAP PO SCH (20:00)
[2019-07-16] MEDS: MoRPHine SULFATE 5 MG/0.25 ML UDP PO PRN (05:58)
--- NOTE | 2019-07-16 09:43 | Palliative Care Progress Note ---
Date of Service July 16, 2019 Subjective Consult placed on 07/14, patient this morning on 07/15 before palliative consult completed. PG Care Time/CCT Total # of Minutes Spent Total Time Spent with Patient: Total time spent is greater than 50% in coordination of care (as documented) at patient's floor/unit and/or counseling patient: Coding Level of Care Code None
--- NOTE | 2019-07-16 09:59 | Hospitalist Progress Note ---
Date of Service July 16, 2019 Assessment & Plan Admission and Anticipated Discharge Date Admission Date: July 13, 2019 Subjective NOTE Paged by patient's nurse, at 9:40 AM, that patient ceased to breath. On my exam, patient is unresponsive to verbal or tactile stimuli, no breath sounds, no heart sounds, no carotid pulses, pupils fixed and dilated. Time of : 9:40 AM, July 16, 2019
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
[2019-07-17] MEDS ORDERED: GABAPENTIN 400 MG CAP PO SCH (08:00)
--- NOTE | 2019-08-08 07:42 | Coding Query ---
CODING QUERY To promote full compliance with coding requirements relating to patient care, provider participation is requested in all cases of orthopedic coder uncertainty. Please assist us with the question(s) below: Coding Question(s): Please clarify if sepsis and aspiration pneumonia were ruled out. Physician's Response(s): Correct, no clear source of infection (sepsis or pneumonia) was identified. Instead, widely spread metastatic disease was found. Thank you Rhiannon Brownlee Principal Diagnosis: "that condition established after study, to be chiefly responsible for occasioning the admission of the patient to the hospital for care." Co-Existing Principal Diagnosis: "when two or more diagnoses equally meet the criteria for principal diagnosis as determined by the circumstances of admission, diagnostic work up, and/or therapy provided, and the Alphabetic Index, Tabular List, or another coding guideline does not provide sequencing direction, any one of the diagnoses may be sequenced first." "When the physician has documented what appears to be a current diagnosis in the body of the record, but has not included the diagnosis in the final diagnostic statement, the physician should be asked whether the diagnosis should be added." ([facility] 2 QTR90. p3-4) FISH
== END 2019-07-16 09:40 | disposition expired | DRG 180 ==
LOC: ED 17:04 → 2N 20:27